=== PATIENT | female | born 1975 | race Caucasian/White ===

== ENCOUNTER 2020-08-15 07:31 | Outpatient (REF) | payer OTHER, SELFPAY ==
[2020-08-15 08:08] LABS: MANUAL DIFF FLAG NO
[2020-08-15 08:13] LABS: Basophils Percent Auto 0.5 % (0-2); Eosinophils Absolute Auto 0.1 X10*3/uL (0.0-0.4); Eosinophils Percent Auto 1.1 % (0-4); Hemoglobin 13.4 g/dl (12.0-16.0); Imm Gran Abs Auto 0.02 X10*3/uL (0.00-0.03); Imm Gran Pct Auto 0.3 % (0.0-0.4); Lymphocytes Absolute Auto 2.3 X10*3/uL (1.2-4.9); Lymphocytes Percent Auto 35.7 % (20-40); Mean Corpuscular HGB Conc 32.7 g/dl (31.0-35.0); Mean Corpuscular Hemoglobin 30.7 pg (27.0-33.0); Mean Corpuscular Volume 93.8 fL (80-98); Mean Platelet Volume 11.1 fL (9.4-12.3); Monocytes Absolute Auto 0.6 X10*3/uL (0.1-1.2); Monocytes Percent Auto 9.2 % (2-11); Neutrophils Absolute Auto 3.5 X10*3/uL (2.0-8.3); Neutrophils Percent Auto 53.2 % (45-73); Platelet Count 189 X10*3/uL (160-400); Red Blood Count 4.37 X10*6/uL (4.20-5.50); Red Cell Distribution Width 13.2 % (11.0-16.0); White Blood Count 6.5 X10*3/uL (4.8-10.8)
[2020-08-15 08:32] LABS: Estimated Average Glucose 108 mg/dL; Hemoglobin A1c % 5.4 %
[2020-08-15 08:34] LABS: Alanine Aminotransferase 14 U/L (0-31); Albumin Level 4.6 g/dL (3.5-5.0); Alkaline Phosphatase 65 U/L (39-117); Anion Gap 10 (12-20); Aspartate Amino Transferase 16 U/L (5-31); Bilirubin Total 0.8 mg/dL (0.0-1.0); Blood Urea Nitrogen 19 mg/dL (9-16); Calcium 9.4 mg/dL (8.4-10.2); Carbon Dioxide 27 mmol/L (22-29); Chloride 106 mmol/L (96-108); Cholesterol 203 mg/dL; Estimated Glomerular Filt Rate > 60; Glucose Fasting 100 mg/dL (60-99); HDL Cholesterol 46 mg/dL; LDL Cholesterol Calculated 142 mg/dl; Potassium 4.7 mmol/l (3.3-5.1); Sodium 138 mmol/L (135-145); Total Protein 7.5 g/dL (6.5-8.0); Triglycerides 77 mg/dL
== END 2020-08-15 07:32 | disposition home or self-care (01) ==
LOC: HO.LAB 07:31
PROVIDERS: PCP Internal Medicine Medical Oncology; Visit Provider Internal Medicine Medical Oncology
DX: E11.9 Type 2 diabetes mellitus without complications (principal); E83.52 Hypercalcemia; E78.2 Mixed hyperlipidemia
CPT/HCPCS: 36415; 80053; 80061; 83036; 85025

== ENCOUNTER 2020-09-23 08:20 | Outpatient (REF) | payer OTHER, SELFPAY ==
--- NOTE | 2020-09-23 | US_ITS ---
EXAMINATION: US ABDOMEN COMPLETE CLINICAL INFORMATION: Gallstones. Right upper quadrant pain. Bloating. COMPARISON: None TECHNIQUE: Real-time imaging of the abdominal viscera. FINDINGS: PANCREAS: Normal. ABDOMINAL AORTA: The proximal, mid, and distal segments are normal in caliber. INFERIOR VENA CAVA: Visualized portions are normal. LIVER: The liver is normal in size. The liver is increased in echogenicity with no focal lesion seen. There is no intrahepatic biliary duct dilatation seen. GALLBLADDER: Normal. The gallbladder is physiologically distended without evidence of stones, sludge, polyps, wall thickening or pericholecystic fluid. COMMON BILE DUCT: Normal in caliber measuring 0.4 cm in diameter. RIGHT KIDNEY: There is echogenic linear calcification, likely a calcified vessel at the lower pole. No hydronephrosis. No renal calculi or focal parenchymal lesions. The kidney measures 10.5 cm in maximum dimension. LEFT KIDNEY: Normal. No hydronephrosis. No renal calculi or focal parenchymal lesions. The kidney measures 10.4 cm in maximum dimension. SPLEEN: Normal. The spleen measures 10.5 cm in maximum dimension. FREE FLUID: None. US/US abdomen complete IMPRESSION: Slight increased hepatic echogenicity. No focal lesion seen. The rest of the abdominal ultrasound is unremarkable.
== END 2020-09-23 08:21 | disposition home or self-care (01) ==
LOC: HO.US 08:20
PROVIDERS: PCP Internal Medicine Medical Oncology; Visit Provider Internal Medicine Medical Oncology
DX: K80.20 Calculus of gallbladder without cholecystitis without obstruction (principal); R10.11 Right upper quadrant pain; R14.0 Abdominal distension (gaseous)
CPT/HCPCS: 76700

== ENCOUNTER → 2020-09-30 11:16 | Outpatient (BNVA) | payer OTHER, SELFPAY | PROVIDERS: PCP Internal Medicine Medical Oncology; Referring Provider Internal Medicine Medical Oncology; Visit Provider Physician Assistant | DX: Z76.89 Persons encountering health services in other specified circumstances (principal) ==

== ENCOUNTER 2020-10-09 14:46 | Outpatient (REF) | payer OTHER, SELFPAY | END 2020-10-09 14:47 | disposition home or self-care (01) | LOC: HO.LAB 14:46 | PROVIDERS: Visit Provider Internal Medicine | DX: Z20.828 Contact with and (suspected) exposure to other viral communicable diseases (principal) | CPT/HCPCS: C9803; U0003 ==

== ENCOUNTER 2020-10-26 10:03 | Outpatient (REF) | payer OTHER, SELFPAY | END 2020-10-26 10:04 | disposition home or self-care (01) | LOC: HO.LNP 10:03 | PROVIDERS: Visit Provider Physician Assistant | DX: A04.8 Other specified bacterial intestinal infections (principal) | CPT/HCPCS: 87338 ==

== ENCOUNTER → 2020-10-29 08:07 | Outpatient (BNVA) | payer OTHER, SELFPAY | PROVIDERS: PCP Internal Medicine Medical Oncology; Visit Provider Physician Assistant | DX: Z76.89 Persons encountering health services in other specified circumstances (principal) ==

== ENCOUNTER 2020-11-02 16:29 | Outpatient (REF) | payer OTHER, SELFPAY | END 2020-11-02 16:30 | disposition home or self-care (01) | LOC: HO.LAB 16:29 | PROVIDERS: Visit Provider Internal Medicine | DX: Z20.822 Contact with and (suspected) exposure to COVID-19 (principal) | CPT/HCPCS: 36415; C9803; U0003 ==

== ENCOUNTER → 2020-12-17 14:30 | Outpatient (BNVA) | payer OTHER, SELFPAY | PROVIDERS: PCP Internal Medicine Medical Oncology; Visit Provider Physician Assistant ==

== ENCOUNTER 2021-01-25 09:15 | Outpatient (REF) | payer OTHER, SELFPAY ==
--- NOTE | ~2021-01-25 | MM_ITS ---
EXAMINATION: MM SCREENING DIGITAL BREAST TOMOSYNTHESIS, BILATERAL CLINICAL INFORMATION: Screening. Asymptomatic. The lifetime risk of breast cancer based on the Tyrer-Cuzick Model is 16.7%. COMPARISON: Mammography: January 03, 2020 and studies dating back to August 01, 2016 TECHNIQUE: Digital breast tomosynthesis is performed in both the craniocaudal and mediolateral oblique views along with computer-aided detection (CAD). Synthesized 2D images are generated from the tomosynthesis. FINDINGS: The breasts are heterogeneously dense, which may obscure small masses (ACR BI-RADS breast composition Category c). There are no significant masses, abnormal calcifications, or other abnormalities. Stable intramammary lymph node seen deep lateral aspect of the right breast. MM/MM tomosynthesis screening BI IMPRESSION: There are no significant changes from prior study. ASSESSMENT: BI-RADS 1: Negative RECOMMENDATION: Routine annual mammography screening. This patient's information was entered into a reminder system with a target due date for their next mammogram.
== END 2021-01-25 09:16 | disposition home or self-care (01) ==
LOC: HO.MAMMO 09:15
PROVIDERS: Visit Provider Internal Medicine Medical Oncology
DX: Z12.31 Encounter for screening mammogram for malignant neoplasm of breast (principal)
CPT/HCPCS: 77063; 77067

== ENCOUNTER → 2021-02-11 14:18 | Outpatient (BNVA) | payer OTHER, SELFPAY | PROVIDERS: PCP Internal Medicine Medical Oncology; Visit Provider Physician Assistant ==

== ENCOUNTER 2021-03-13 08:54 | Outpatient (REF) | payer OTHER, SELFPAY ==
[2021-03-13 09:39] LABS: MANUAL DIFF FLAG NO
[2021-03-13 09:48] LABS: Basophils Percent Auto 0.5 % (0-2); Eosinophils Absolute Auto 0.1 X10*3/uL (0.0-0.4); Eosinophils Percent Auto 1.1 % (0-4); Hematocrit 40.5 % (37-47); Hemoglobin 13.4 g/dl (12.0-16.0); Imm Gran Abs Auto 0.02 X10*3/uL (0.00-0.03); Imm Gran Pct Auto 0.3 % (0.0-0.4); Lymphocytes Absolute Auto 2.5 X10*3/uL (1.2-4.9); Mean Corpuscular HGB Conc 33.1 g/dl (31.0-35.0); Mean Corpuscular Hemoglobin 30.5 pg (27.0-33.0); Mean Corpuscular Volume 92.3 fL (80-98); Mean Platelet Volume 11.6 fL (9.4-12.3); Monocytes Absolute Auto 0.5 X10*3/uL (0.1-1.2); Monocytes Percent Auto 7.9 % (2-11); Neutrophils Absolute Auto 3.2 X10*3/uL (2.0-8.3); Neutrophils Percent Auto 50.2 % (45-73); Platelet Count 191 X10*3/uL (160-400); Red Blood Count 4.39 X10*6/uL (4.20-5.50); Red Cell Distribution Width 13.2 % (11.0-16.0); White Blood Count 6.3 X10*3/uL (4.8-10.8)
[2021-03-13 10:19] LABS: Alanine Aminotransferase 16 U/L (0-31); Albumin Level 4.6 g/dL (3.5-5.0); Alkaline Phosphatase 74 U/L (39-117); Anion Gap 11 (12-20); Aspartate Amino Transferase 17 U/L (5-31); Bilirubin Total 0.6 mg/dL (0.0-1.0); Blood Urea Nitrogen 22 mg/dL (9-16); C Reactive Protein 0.49 mg/dL (< or = 0.50); Calcium 9.8 mg/dL (8.4-10.2); Carbon Dioxide 27 mmol/L (22-29); Chloride 104 mmol/L (96-108); Estimated Glomerular Filt Rate > 60; Glucose Random 95 mg/dL (60-115); Potassium 4.8 mmol/L (3.3-5.1); Sodium 137 mmol/L (135-145); Total Protein 7.4 g/dL (6.5-8.0)
[2021-03-15 23:12] LABS: Transglutaminase IgA 1 U/mL
[2021-03-20 12:47] LABS: Endomysial IgA Antibody Negative (Negative)
== END 2021-03-13 08:55 | disposition home or self-care (01) ==
LOC: HO.LAB 08:54
PROVIDERS: PCP Internal Medicine Medical Oncology; Visit Provider Physician Assistant
DX: K52.9 Noninfective gastroenteritis and colitis, unspecified (principal); R74.01 Elevation of levels of liver transaminase levels; R10.11 Right upper quadrant pain; R19.7 Diarrhea, unspecified
CPT/HCPCS: 36415; 80053; 83516; 85025; 86140; 86255; 86256

== ENCOUNTER 2021-04-21 07:26 | Day surgery (SDC) | payer OTHER, SELFPAY ==
[2021-04-15 11:55] VITALS: BMI 35.9
[2021-04-15 13:31] VITALS: BMI 35.9
--- NOTE | 2021-04-20 10:08 | HO.ANESPROP2 ---
Documented by User: Heather Ramachandran 04/20/21 10:09 HPI - Anesthesia Eval Consult details Narrative: 45yo F for Colonoscopy *Multiple med allergies* PMFSH Active Problems Active Problems: All Active Problems (Updated 04/15/21 @ 13:33 by Shanique Russ) Chronic diarrhea (Acute) Irritable bowel (Acute) Heartburn (Acute) Past Medical History Medical History (Updated 04/15/21 @ 13:33 by Shanique Russ) Chronic diarrhea Heartburn Irritable bowel Low back pain Family History Family History Maternal Grandmother Breast cancer Diabetes Social History Social History Household Members: Spouse and Children Household Members Other:: 1 child Alcohol intake: current Alcohol intake frequency: a few times a month Patient Tobacco Use Status: Never used Tobacco Use of substances other than those prescribed or required for medical reasons: Yes Have you been hit, kicked, punched, or otherwise hurt by someone within the past year? 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 Allergies Allergy/AdvReac Type Severity Reaction Status Date / Time ampicillin [AMPICILLIN] Allergy Severe RASH Verified 04/21/21 07:52 Penicillins [PENICILLINS] Allergy Severe Rash Verified 04/21/21 07:52 Sulfa (Sulfonamide Allergy Severe RASH Verified 04/21/21 07:52 Antibiotics) [SULFA (SULFONAMIDE ANTIBIOTICS)] penicillin V Allergy Unknown Rash Verified 04/21/21 07:52 Sulf-10 Allergy Unknown rash Uncoded 04/21/21 07:52 Sulfacet-R Allergy Unknown rash Uncoded 04/21/21 07:52 Exam Exam Date and Time: April 20, 2021 1008 Height,Weight and Vital Signs: Height 5 ft 1 in Weight 86.183 kg Assessment and Plan Assessment Anesthesia Assessment: Chart Reviewed Documented by User: Charlee Faviola 04/21/21 08:38 [facility] Past Medical History Medical History (Updated 04/15/21 @ 13:33 by Shanique Russ) Chronic diarrhea Heartburn Irritable bowel Low back pain Family History Family History Maternal Grandmother Breast cancer Diabetes Social History Social History Household Members: Spouse and Children Household Members Other:: 1 child Alcohol intake: current Alcohol intake frequency: a few times a month Patient Tobacco Use Status: Never used Tobacco Use of substances other than those prescribed or required for medical reasons: Yes Have you been hit, kicked, punched, or otherwise hurt by someone within the past year? 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 Allergies Allergy/AdvReac Type Severity Reaction Status Date / Time ampicillin [AMPICILLIN] Allergy Severe RASH Verified 04/21/21 07:52 Penicillins [PENICILLINS] Allergy Severe Rash Verified 04/21/21 07:52 Sulfa (Sulfonamide Allergy Severe RASH Verified 04/21/21 07:52 Antibiotics) [SULFA (SULFONAMIDE ANTIBIOTICS)] penicillin V Allergy Unknown Rash Verified 04/21/21 07:52 Sulf-10 Allergy Unknown rash Uncoded 04/21/21 07:52 Sulfacet-R Allergy Unknown rash Uncoded 04/21/21 07:52 Exam Airway Mallampati Class: II TM Dist: >3cm Neck ROM: Full Heart: rrr Lungs: cta Assessment and Plan Assessment Anesthesia Assessment: Anesthesia Plan Discussed and Chart Reviewed Final Anesthetic Review NPO: Yes ASA Class: II Final Preanesthetic Review: No Changes in Pt Med Stat and Consent Obtained/Reviewed Patient Risk: Intermediate Procedure Risk: Intermediate Anesthetic Plan Anesthetic Plan: MAC: Disposition: Standard PACU
--- NOTE | 2021-04-21 07:32 | MHC.SHP ---
Pre-Procedural Eval Section B Chief Complaint: Screening Relevant Family History (Specify if Yes): No Relevant Social History: None Present Medications: see Short Stay Collaborative assessment Medical History: Significant History ( Chronic diarrhea Heartburn Irritable bowel Low back pain) History of Previous Operations: No relevant previous surgery Allergies: Allergies Allergy/AdvReac Type Severity Reaction Status Date / Time ampicillin [AMPICILLIN] Allergy Severe RASH Verified 04/15/21 13:30 Penicillins [PENICILLINS] Allergy Severe Rash Verified 04/15/21 13:30 Sulfa (Sulfonamide Allergy Severe RASH Verified 04/15/21 13:30 Antibiotics) [SULFA (SULFONAMIDE ANTIBIOTICS)] penicillin V Allergy Unknown Rash Verified 12/17/20 14:31 Sulf-10 Allergy Unknown rash Uncoded 12/17/20 14:31 Sulfacet-R Allergy Unknown rash Uncoded 12/17/20 14:31 Review of Systems Sugical H&P ROS: Negative: Constitution, Cardiovascular, Respiratory, Neurological, Psychiatric, Hem-Onc, Allergic/Immunologic, Gastrointestinal, Genitourinary, Musculoskeletal, Integumentary, Endocrine and Eyes/Ears/Nose/Throat Exam Surgical H&P Exam: Normal: HEENT, Normal: Heart, Normal: Lungs, Normal: Extremities, Normal: Abdomen, Normal: Skin and Normal: Neurological Plan Diagnosis/Plan: Unchanged I have reviewed the history and physical and performed a pertinent physical examination on my patient. No changes have occurred unless specified.
[2021-04-21 07:46] VITALS: BP 139/82; PULSE 68; RESP 18; TEMP 36.7; O2SAT 99
[2021-04-21 07:50] LABS: UPreg QC Valid YES; Urine Pregnancy NEGATIVE (NEGATIVE)
[2021-04-21] MEDS: Lactated Ringers 1,000 ML 100 ML IVCONT (08:08)
--- NOTE | 2021-04-21 09:05 | P.BOP_ITS ---
Brief Operative Note Date of Service: 04/21/21 Pre-op diagnosis: diarrhea, cramps Post-op diagnosis: same Procedure: see op note Surgeon: Felicitas Felix MD Anesthesia: MAC Was an Real Estate Broker Associate used for this Procedure?: No Estimated blood loss (mL): 0 Condition: stable Disposition: PACU
--- NOTE | 2021-04-21 09:05 | W.PM.OPN ---
Operative Note Operative Note Date of Service: 04/21/21 Narrative: Operative Information Procedure Description: Colonoscopy COLONOSCOPY Instrument: Olympus variable stiffness pediatric scope 190L Colonoscopy Monitoring: Vital signs and clinical assessment, continuous EKG monitoring, Pulse oximetry, Carbon Dioxide monitoring and blood pressure monitoring were done throughout the procedure. Colon withdrawal time was 10 minutes. Procedure: The patient was placed in the left lateral decubitis position and pre-procedure medications were administered. After a digital rectal examination of the ano-rectum, the video colonoscope was inserted into the rectum and advanced through the colon to the cecum/TI. The colonoscope was slowly withdrawn in a retrograde panoramic fashion and the colon mucosa was carefully examined including a retroflexed view of the rectum. Findings and interventions are described below. Procedure Difficulty:easy Findings: Terminal Ileum-normal, random bx taken random colon bx taken Cecum:normal Ascending Colon: normal Transverse Colon -normal Descending Colon:normal Sigmoid Colon: normal Rectum: Retroflexion with small internal hemorrhoids, grade I Anorectum - normal Colon preparation: [place] Bowel Preparation Scale Right colon; 2 Transverse colon: 3 Left colon; 3 (0 = Unprepared colon segment with mucosa not seen due to solid stool that cannot be cleared. 1 = Portion of mucosa of the colon segment seen, but other areas of the colon segment not well seen due to staining, residual stool and/or opaque liquid. 2 = Minor amount of residual staining, small fragments of stool and/or opaque liquid, but mucosa of colon segment seen well. 3 = Entire mucosa of colon segment seen well with no residual staining, small fragments of stool or opaque liquid) Impression and Post Procedure Diagnosis: internal hemorrhoids Plan: High fiber diet leaflet Avoid straining at stool, epsom salts and sitz bath, anusol supps or cream as needed Repeat Colonoscopy in 10 years or earlier if clinically indicated if bx neg then recommend EGD, trial of lactose and fructose elimination Above findings were reviewed with the patient and relevant handouts were provided if indicated.
[2021-04-21 09:10] VITALS: BP 111/62; PULSE 70; RESP 16; TEMP 36.2; O2SAT 96
[2021-04-21 09:23] VITALS: BP 125/77; PULSE 51; RESP 10; O2SAT 99
== END 2021-04-21 10:03 | disposition home or self-care (01) ==
PROVIDERS: Nurse Practitioner; PCP Internal Medicine Medical Oncology; Visit Provider Internal Medicine Gastroenterology
PROC: 0DJD8ZZ Inspection of Lower Intestinal Tract, Via Natural or Artificial Opening Endoscopic (ICD-10-PCS; CPT 45378; principal; 2021-04-21 08:30)
DX: Z12.11 Encounter for screening for malignant neoplasm of colon (principal); K64.0 First degree hemorrhoids; K58.0 Irritable bowel syndrome with diarrhea; R12 Heartburn; Z88.0 Allergy status to penicillin; Z88.2 Allergy status to sulfonamides; Z79.899 Other long term (current) drug therapy
CPT/HCPCS: 45380; 81025; 88305

== ENCOUNTER 2021-05-19 08:45 | Day surgery (SDC) | payer OTHER, SELFPAY ==
--- NOTE | 2021-05-18 12:17 | P.CONAN_ITS ---
Documented by User: Heather Ramachandran 05/18/21 12:18 HPI - Anesthesia Eval Consult details Narrative: 45yo F for Upper Endoscopy s/p colo with MAC 04/21 PMF Active Problems Active Problems: All Active Problems (Updated 04/15/21 @ 13:33 by Shanique Russ) Chronic diarrhea (Acute) Irritable bowel (Acute) Heartburn (Acute) Past Medical History Medical History (Updated 04/15/21 @ 13:33 by Shanique Russ) Chronic diarrhea Heartburn Irritable bowel Low back pain Family History Family History Maternal Grandmother Breast cancer Diabetes Social History Social History Household Members: Spouse and Children Household Members Other:: 1 child Alcohol intake: current Alcohol intake frequency: a few times a month Patient Tobacco Use Status: Never used Tobacco Advance Directives: No Advance Directives Information Provided: Yes Recently lost weight without trying: No Nutrition Risks: No Nutritional Risk 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 Meds Allergies Allergy/AdvReac Type Severity Reaction Status Date / Time ampicillin [AMPICILLIN] Allergy Severe RASH Verified 04/21/21 07:52 Penicillins [PENICILLINS] Allergy Severe Rash Verified 04/21/21 07:52 Sulfa (Sulfonamide Allergy Severe RASH Verified 04/21/21 07:52 Antibiotics) [SULFA (SULFONAMIDE ANTIBIOTICS)] penicillin V Allergy Unknown Rash Verified 04/21/21 07:52 Sulf-10 Allergy Unknown rash Uncoded 04/21/21 07:52 Sulfacet-R Allergy Unknown rash Uncoded 04/21/21 07:52 Exam Exam Date and Time: May 18, 2021 1217 Pertinent Lab Results Pertinent Lab Results: Laboratory Tests 03/13/21 03/13/21 09:10 09:10 WBC 6.3 Hgb 13.4 Hct 40.5 Plt Count 191 Sodium 137 Potassium 4.8 Chloride 104 Carbon Dioxide 27 BUN 22 H Creatinine 0.98 Assessment and Plan Assessment Anesthesia Assessment: Chart Reviewed Documented by User: Charlee Faviola 05/19/21 09:45 PMFSH Past Medical History Medical History (Updated 04/15/21 @ 13:33 by Shanique Russ) Chronic diarrhea Heartburn Irritable bowel Low back pain Family History Family History Maternal Grandmother Breast cancer Diabetes Social History Social History Household Members: Spouse and Children Household Members Other:: 1 child Alcohol intake: current Alcohol intake frequency: a few times a month Patient Tobacco Use Status: Never used Tobacco Advance Directives: No Advance Directives Information Provided: Yes Recently lost weight without trying: No Nutrition Risks: No Nutritional Risk 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 Meds Allergies Allergy/AdvReac Type Severity Reaction Status Date / Time ampicillin [AMPICILLIN] Allergy Severe RASH Verified 04/21/21 07:52 Penicillins [PENICILLINS] Allergy Severe Rash Verified 04/21/21 07:52 Sulfa (Sulfonamide Allergy Severe RASH Verified 04/21/21 07:52 Antibiotics) [SULFA (SULFONAMIDE ANTIBIOTICS)] penicillin V Allergy Unknown Rash Verified 04/21/21 07:52 Sulf-10 Allergy Unknown rash Uncoded 04/21/21 07:52 Sulfacet-R Allergy Unknown rash Uncoded 04/21/21 07:52 Exam Airway Mallampati Class: II TM Dist: >3cm Neck ROM: Full Heart: rrr Lungs: cta Assessment and Plan Assessment Anesthesia Assessment: Anesthesia Plan Discussed and Chart Reviewed Final Anesthetic Review NPO: Yes ASA Class: II Final Preanesthetic Review: No Changes in Pt Med Stat and Consent Obtained/Reviewed Patient Risk: Intermediate Procedure Risk: Intermediate Anesthetic Plan Anesthetic Plan: MAC: Disposition: Standard PACU
[2021-05-19 09:23] VITALS: BP 130/66; PULSE 63; RESP 16; TEMP 36.7; O2SAT 99; BMI 35.9
[2021-05-19 09:29] LABS: UPreg QC Valid YES; Urine Pregnancy NEGATIVE (NEGATIVE)
[2021-05-19] MEDS: Lactated Ringers 1,000 ML 100 ML IVCONT (09:41)
--- NOTE | 2021-05-19 10:02 | MHC.SHP ---
Pre-Procedural Eval Section A Date of Service: 05/19/21 Section B Chief Complaint: diarrhea Relevant Family History (Specify if Yes): No Relevant Social History: None Present Medications: see Short Stay Collaborative assessment Medical History: Significant History (Chronic diarrhea Heartburn Irritable bowel Low back pain) History of Previous Operations: Relevant previous surgery/procedure and date(s) (colonoscopy) Allergies: Allergies Allergy/AdvReac Type Severity Reaction Status Date / Time ampicillin [AMPICILLIN] Allergy Severe RASH Verified 04/21/21 07:52 Penicillins [PENICILLINS] Allergy Severe Rash Verified 04/21/21 07:52 Sulfa (Sulfonamide Allergy Severe RASH Verified 04/21/21 07:52 Antibiotics) [SULFA (SULFONAMIDE ANTIBIOTICS)] penicillin V Allergy Unknown Rash Verified 04/21/21 07:52 Sulf-10 Allergy Unknown rash Uncoded 04/21/21 07:52 Sulfacet-R Allergy Unknown rash Uncoded 04/21/21 07:52 Review of Systems Sugical H&P ROS: Negative: Constitution, Cardiovascular, Respiratory, Neurological, Psychiatric, Hem-Onc, Allergic/Immunologic, Gastrointestinal, Genitourinary, Musculoskeletal, Integumentary, Endocrine and Eyes/Ears/Nose/Throat Exam Surgical H&P Exam: Normal: HEENT, Normal: Heart, Normal: Lungs, Normal: Extremities, Normal: Abdomen, Normal: Skin and Normal: Neurological Plan Diagnosis/Plan: Unchanged I have reviewed the history and physical and performed a pertinent physical examination on my patient. No changes have occurred unless specified.
--- NOTE | 2021-05-19 10:03 | P.OP_ITS ---
Operative Note Operative Note Date of Service: 05/19/21 Narrative: Procedure Description: EGD FLEXIBLE TRANSORAL UPPER GASTROINTESTINAL ENDOSCOPY UPPER ENDOSCOPY Consent: Indications for the procedure and potential complications of bleeding, perforation, reaction to medications and missed diagnosis were discussed with the patient and informed consent was obtained. Instrument: Olympus GIF H 190 J mid size upper endoscope Monitoring: Vital signs and clinical assessment, continuous EKG monitoring, Pulse oximetry, Carbon Dioxide monitoring and blood pressure monitoring were done throughout the procedure. Procedure: The patient was placed in the left lateral decubitis position and pre-procedure medications were administered and a bite block was placed. The endoscope was inserted into the mouth and advanced under direct vision to the third part of duodenum. A careful inspection was made as the upper endoscope was withdrawn including a retroflexed examination of the proximal stomach; Findings and interventions are described below. Findings: Larynx:normal Esophagus: GE junction at 36 cm, diaphragm hiatus at 33 cm, mild esophagitis noted with a small island of possible barretts, bx taken--3 cm sliding hiatal hernia noted Stomach: Patchy gastric erythema with few erosions at antrum. Biopsies were obtained. Grade 2 flap valve on retroflexed examination of the cardia. 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
--- NOTE | 2021-05-19 10:03 | PM.OP ---
Brief Operative Note Date of Service: 05/19/21 Pre-op diagnosis: diarrhea Post-op diagnosis: same Procedure: see op note Surgeon: Felicitas Felix MD Anesthesia: MAC Was an Dynamic Etching Processor used for this Procedure?: No Estimated blood loss (mL): 0 Condition: stable Disposition: PACU
[2021-05-19 10:40] VITALS: BP 106/64; PULSE 88; RESP 16; TEMP 36.2; O2SAT 92
[2021-05-19 10:55] VITALS: BP 116/59; PULSE 63; RESP 16; TEMP 36.2; O2SAT 96
[2021-05-24 23:16] LABS: Lactase 4.4 (15.0-45.5); Maltase 222.1 (100.0-224.4); Palatinase 15.4 (5.0-26.3); Sucrase 62.1 (25.0-69.9)
== END 2021-05-19 11:30 | disposition home or self-care (01) ==
PROVIDERS: Nurse Practitioner; PCP Internal Medicine Medical Oncology; Visit Provider Internal Medicine Gastroenterology
PROC: 0DJ08ZZ Inspection of Upper Intestinal Tract, Via Natural or Artificial Opening Endoscopic (ICD-10-PCS; CPT 43235; principal; 2021-05-19 15:50)
DX: K29.60 Other gastritis without bleeding (principal); K58.9 Irritable bowel syndrome, unspecified; K22.70 Barrett's esophagus without dysplasia; K20.80 Other esophagitis without bleeding; K44.9 Diaphragmatic hernia without obstruction or gangrene; Z79.899 Other long term (current) drug therapy; Z88.0 Allergy status to penicillin; Z88.2 Allergy status to sulfonamides
CPT/HCPCS: 43239; 36415; 81025; 82657; 88305; 88342

== ENCOUNTER 2021-06-15 08:55 | Outpatient (REF) | payer OTHER, SELFPAY ==
[2021-06-16 14:41] LABS: H Pylori Breath Test NOT DETECTED (NOT DETECTED)
== END 2021-06-15 08:56 | disposition home or self-care (01) ==
LOC: HO.LNP 08:55
PROVIDERS: PCP Emergency Medicine; Visit Provider Internal Medicine Gastroenterology
DX: K52.9 Noninfective gastroenteritis and colitis, unspecified (principal); R12 Heartburn
CPT/HCPCS: 83013

== ENCOUNTER → 2021-07-06 15:03 | Outpatient (BNVA) | payer OTHER, SELFPAY | PROVIDERS: PCP Emergency Medicine; Visit Provider Internal Medicine Gastroenterology ==

== ENCOUNTER → 2021-10-12 14:52 | Outpatient (BNVA) | payer OTHER, SELFPAY | PROVIDERS: PCP Internal Medicine Medical Oncology; Visit Provider Internal Medicine Gastroenterology ==

== ENCOUNTER 2022-02-15 08:46 | Outpatient (REF) | payer OTHER, SELFPAY ==
--- NOTE | ~2022-02-15 | MM_ITS ---
EXAMINATION: MM SCREENING DIGITAL BREAST TOMOSYNTHESIS, BILATERAL CLINICAL INFORMATION: Screening. Asymptomatic. The lifetime risk of breast cancer based on the Tyrer-Cuzick Model is 16%. COMPARISON: Mammography: 01/25/2021, 01/03/2020, 12/03/2018 TECHNIQUE: Digital breast tomosynthesis is performed in both the craniocaudal and mediolateral oblique views along with computer-aided detection (CAD). Synthesized 2D images are generated from the tomosynthesis. FINDINGS: The breasts are heterogeneously dense, which may obscure small masses (ACR BI-RADS breast composition Category c). There are no significant masses, abnormal calcifications, or other abnormalities. Parenchymal pattern is similar to prior studies. There is no developing density or architectural abnormality. The axilla and skin contours are unremarkable. No significant changes. MM/MM tomosynthesis screening BI IMPRESSION: No mammographic evidence of malignancy. ASSESSMENT: BI-RADS 1: Negative RECOMMENDATION: Routine annual mammography screening. This patient's information was entered into a reminder system with a target due date for their next mammogram.
== END 2022-02-15 08:47 | disposition home or self-care (01) ==
LOC: HO.MAMMO 08:46
PROVIDERS: PCP Internal Medicine Medical Oncology; Visit Provider Internal Medicine Medical Oncology
DX: Z12.31 Encounter for screening mammogram for malignant neoplasm of breast (principal)
CPT/HCPCS: 77063; 77067

== ENCOUNTER 2023-02-21 08:02 | Outpatient (REF) | payer OTHER, SELFPAY ==
--- NOTE | ~2023-02-21 | MM_ITS ---
EXAMINATION: MM SCREENING DIGITAL BREAST TOMOSYNTHESIS, BILATERAL CLINICAL INFORMATION: Screening. Asymptomatic. The lifetime risk of breast cancer based on the Tyrer-Cuzick Model is 18.2%. COMPARISON: Mammography: 02/15/2022 and studies dating back to 08/01/2016 TECHNIQUE: Digital breast tomosynthesis is performed in both the craniocaudal and mediolateral oblique views along with computer-aided detection (CAD). Synthesized 2D images are generated from the tomosynthesis. FINDINGS: The breasts are heterogeneously dense, which may obscure small masses (ACR BI-RADS breast composition Category c). There is a stable parenchymal pattern of the right breast with no new abnormal dominant mass or suspicious grouping of microcalcifications. On mediolateral oblique view of the left breast there is an ill-defined density which may represent superimposition of fibroglandular tissue however mass cannot be excluded and recommend spot compression view in mediolateral oblique projection as well as 90 degree mediolateral view. MM/MM tomosynthesis screening BI IMPRESSION: Left breast density for further evaluation. ASSESSMENT: BI-RADS 0: Incomplete - Need Additional Imaging Evaluation RECOMMENDATION: 1. Additional views of the left breast. 2. Targeted ultrasound if warranted after review of the additional views. 3. Radiology department staff will contact the patient for additional imaging. This patient's information was entered into a reminder system with a target due date for their next mammogram.
== END 2023-02-21 08:03 | disposition home or self-care (01) ==
LOC: HO.MAMMO 08:02
PROVIDERS: PCP Internal Medicine Medical Oncology; Visit Provider Obstetrics & Gynecology
DX: Z12.31 Encounter for screening mammogram for malignant neoplasm of breast (principal)
CPT/HCPCS: 77063; 77067

== ENCOUNTER 2023-03-22 14:42 | Outpatient (REF) | payer OTHER, SELFPAY ==
--- NOTE | ~2023-03-22 | MM_ITS ---
EXAMINATION: MM DIAGNOSTIC DIGITAL BREAST TOMOSYNTHESIS, LEFT CLINICAL INFORMATION: Recall from screening for asymmetric density on MLO view, suspect summation artifact. COMPARISON: Prior mammography exams including most recent 02/21/2023. TECHNIQUE: Digital breast tomosynthesis is performed. 2D images are generated from the tomosynthesis. The following views are obtained: Spot MLO, standard ML. FINDINGS: The breasts are heterogeneously dense, which may obscure small masses (ACR BI-RADS breast composition Category c). The additional views show no significant changes from prior studies. There is no developing density or mass or architectural abnormality. Results are discussed with the patient at time of visit. MM/MM tomosynthesis added views L IMPRESSION: No mammographic evidence of malignancy. ASSESSMENT: BI-RADS 1: Negative RECOMMENDATION: Routine annual mammography screening. This patient's information was entered into a reminder system with a target due date for their next mammogram.
== END 2023-03-22 14:43 | disposition home or self-care (01) ==
LOC: HO.MAMMO 14:42
PROVIDERS: PCP Internal Medicine Medical Oncology; Visit Provider Obstetrics & Gynecology
DX: R92.2 Inconclusive mammogram (principal)
CPT/HCPCS: 77061; 77065

== ENCOUNTER 2023-04-26 06:33 | Outpatient (REF) | payer OTHER, SELFPAY ==
[2023-04-26 06:46] LABS: MANUAL DIFF FLAG NO
[2023-04-26 07:07] LABS: Basophils Percent Auto 0.3 % (0-2); Eosinophils Absolute Auto 0.1 X10*3/uL (0.0-0.4); Eosinophils Percent Auto 1.1 % (0-4); Hematocrit 40.1 % (37.0-47.0); Hemoglobin 13.4 g/dl (12.0-16.0); Imm Gran Abs Auto 0.01 X10*3/uL (0.00-0.03); Imm Gran Pct Auto 0.2 % (0.0-0.4); Lymphocytes Absolute Auto 2.5 X10*3/uL (1.2-4.9); Lymphocytes Percent Auto 37.8 % (20-40); Mean Corpuscular HGB Conc 33.4 g/dl (31.0-35.0); Mean Corpuscular Hemoglobin 30.9 pg (27.0-33.0); Mean Corpuscular Volume 92.6 fL (80.0-98.0); Mean Platelet Volume 11.8 fL (9.4-12.3); Monocytes Absolute Auto 0.5 X10*3/uL (0.1-1.2); Monocytes Percent Auto 7.8 % (2-11); Neutrophils Absolute Auto 3.5 x10*3/uL (2.0-8.3); Neutrophils Percent Auto 52.8 % (45-73); Platelet Count 182 X10*3/uL (160-400); Red Blood Count 4.33 X10*6/uL (4.20-5.50); Red Cell Distribution Width 13.1 % (11.0-16.0); White Blood Count 6.5 X10*3/uL (4.8-10.8)
[2023-04-26 07:55] LABS: Alanine Aminotransferase 16 U/L (0-31); Albumin Level 4.3 g/dL (3.5-5.0); Alkaline Phosphatase 50 U/L (39-117); Anion Gap 13 (12-20); Aspartate Amino Transferase 19 U/L (5-31); Bilirubin Total 0.6 mg/dL (0.0-1.0); Blood Urea Nitrogen 21 mg/dL (9-16); Calcium 10.3 mg/dL (8.4-10.2); Carbon Dioxide 25 mmol/L (22-29); Chloride 105 mmol/L (96-108); Cholesterol 197 mg/dL; Estimated Glomerular Filt Rate > 60; Glucose Fasting 98 mg/dL (60-99); HDL Cholesterol 43 mg/dL; LDL Cholesterol Calculated 137 mg/dl; Potassium 4.4 mmol/L (3.3-5.1); Sodium 139 mmol/L (135-145); Total Protein 7.3 g/dL (6.5-8.0); Triglycerides 87 mg/dL
[2023-04-26 08:05] LABS: Estimated Average Glucose 103 mg/dL; Hemoglobin A1c % 5.2 %
[2023-04-26 08:43] LABS: Creatinine Urine 91.54 mg/dL; Microalbumin Urine < 5.0 mg/L
== END 2023-04-26 06:34 | disposition home or self-care (01) ==
LOC: HO.LAB 06:33
PROVIDERS: PCP Internal Medicine Medical Oncology; Visit Provider Internal Medicine Medical Oncology
DX: Z00.00 Encounter for general adult medical examination without abnormal findings (principal); E11.9 Type 2 diabetes mellitus without complications; E83.52 Hypercalcemia; E78.2 Mixed hyperlipidemia
CPT/HCPCS: 36415; 80053; 80061; 82043; 83036; 85025

== ENCOUNTER 2023-07-10 14:32 | Outpatient (REF) | payer OTHER, SELFPAY ==
[2023-07-10 16:37] LABS: Vitamin D 25-OH Total 34.5 ng/mL (>30)
[2023-07-10 16:51] LABS: Folate 8.8 ng/mL (> or = 4.0); Vitamin B12 990 pg/mL (200-900)
[2023-07-13 16:48] LABS: Zinc 62 mcg/dL (60-130)
[2023-07-14 21:49] LABS: Alpha-Tocopherol 15.3 mg/L (5.7-19.9); Beta-Gamma Tocopherol <1.0 mg/L (<=4.3)
[2023-07-15 10:03] LABS: Vitamin B1 11 nmol/L (8-30)
[2023-07-15 12:39] LABS: Vitamin B6 21.4 ng/mL (2.1-21.7)
[2023-07-15 17:18] LABS: Vitamin B5 (Pantothenic Acid) 87 ng/mL (<275)
[2023-07-15 17:48] LABS: Vitamin A 40 mcg/dL (38-98)
[2023-07-15 17:53] LABS: Vitamin K1 762 pg/mL (130-1500)
[2023-07-15 21:59] LABS: Vitamin C 0.9 mg/dL (0.3-2.7)
[2023-07-17 23:19] LABS: Nicotinamide 20 ng/mL; Vit B3 - Nicotinic Acid <20 ng/mL
== END 2023-07-10 14:33 | disposition home or self-care (01) ==
LOC: HO.LAB 14:32
PROVIDERS: PCP Internal Medicine Medical Oncology; Visit Provider Internal Medicine Gastroenterology
DX: K20.90 Esophagitis, unspecified without bleeding (principal); K29.60 Other gastritis without bleeding; Z91.018 Allergy to other foods; E55.9 Vitamin D deficiency, unspecified
CPT/HCPCS: 36415; 82180; 82306; 82607; 82746; 84207; 84425; 84446; 84590; 84591; 84597; 84630; 86003

== ENCOUNTER 2023-07-10 14:32 | Outpatient (AMB) | payer OTHER, SELFPAY ==
--- NOTE | 2023-07-10 14:32 | A.OFFVIS_ITS ---
Intake Vital Signs 07/10/23 14:35 Height 5 ft 1 in Weight 179 lb 12.465 oz BMI 34.0 BP 131/72 Blood Pressure Location Lt brachial Position Sitting Pulse 61 Intake Visit Reasons: 6 month fu Intake Note: Lola presents in the office as a 6 month follow up. CC: She states that she is feeling okay! She is still trying to find a good diet that works for her. Allergies ampicillin [AMPICILLIN] Allergy (Severe, Verified 07/10/23 14:36) RASH Penicillins [PENICILLINS] Allergy (Severe, Verified 07/10/23 14:36) Rash Sulfa (Sulfonamide Antibiotics) [SULFA (SULFONAMIDE ANTIBIOTICS)] Allergy (Severe, Verified 07/10/23 14:36) RASH amoxicillin Allergy (Mild, Verified 07/10/23 14:36) Unknown penicillin V Allergy (Unknown, Verified 07/10/23 14:36) Rash Sulf-10 Allergy (Unknown, Uncoded 07/10/23 14:36) rash Sulfacet-R Allergy (Unknown, Uncoded 07/10/23 14:36) rash HPI 6 month fu HPI Details 47 yr old f here for f/u RECAP: c/o loose stool-abdominal cramp, interrupting her life.? She has had acid reflux as well.? stress maybe playing a role she tried rifaximin and it didn;t help colonoscopy--nml bx, EGD 05/19-- hiatal hernia, erosive gastritis, esophagitis, lactase enzyme 4.4 --low h pylori breath--neg TTG neg INTERIM: she has been trying to careful with her diet and avoiding triggers cheryl fried and greasy, curries etc no nausea or vomiting no abdominal pain takes black coffee very occasional no dysphagia no -heartburn---feels PPI is helping EXAM: GENERAL: The patient is well developed and nontoxic. VITAL SIGNS:see workflow HEENT: Nonicteric sclerae, PERRLA, EOMI. Oropharynx clear. Moist mucous membranes. Conjunctivae appear well perfused. No thyroid mass. CHEST: Chest wall is nontender. HEART: Regular rate and rhythm without murmurs. LUNGS: Clear to auscultation bilaterally. ABDOMEN: Soft, positive bowel sounds, nontender, no organomegaly.no flank tenderness SKIN: No rash, no excessive bruising, petechiae, or purpura. NEUROLOGIC: Cranial nerves II-XII intact without motor/sensory deficit. A/P: 1/ Erosive gastritis, esophagitis, hiata l hernia--h pylori ne,g maybe acid hypersecretor 2/ lactose deficient PLAN: 1/ cont with probiotics with bifidobacte rium 2/cont PPI once daily with MV with Vit D 3/ check RAST for food allergy ?? 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 Physical Exam Vital Signs: BMI result Body Mass Index 34.0 Assessment & Plan Assessment & Plan (1) Esophagitis: Code(s): K20.90 - Esophagitis, unspecified without bleeding (2) Erosive gastritis: Code(s): K29.60 - Other gastritis without bleeding (3) Food allergy: Code(s): Z91.018 - Allergy to other foods Orders: Orders Vitamin B3 (Niacin) Today K20.90 - Esophagitis, unspecified without bleeding, K2 9.60 - Other gastritis without bleeding, Z91.018 - Allergy to other foods Vitamin B5 (Pantothenic Acid) Today K20.90 - Esophagitis, unspecified without bleeding, K29.60 - Other gastritis without bleeding, Z91.018 - Allergy to other foods Vitamin B6 Today K20.90 - Esophagitis, unspecified without bleeding, K29.60 - Other gastritis without bleeding, Z91.018 - Allergy to other foods Vitamin C Today K20.90 - Esophagitis, unspecified without bleeding, K29.60 - Other gastritis without bleeding, Z91.018 - Allergy to other foods Vitamin K1 Today K20.90 - Esophagitis, unspecified without bleeding, K29.60 - Other gastritis without bleeding, Z91.018 - Allergy to other foods Vitamin A Today K20.90 - Esophagitis, unspecified without bleeding, K29.60 - Other gastritis without bleeding, Z91.018 - Allergy to other foods Vitamin B1 Today K20.90 - Esophagitis, unspecified without bleeding, K29.60 - Other gastritis without bleeding, Z91.018 - Allergy to other foods Vitamin B12 and Folate Today K20.90 - Esophagitis, unspecified without bleeding, K29.60 - Other gastritis without bleeding, Z91.018 - Allergy to other foods Vitamin D 25-OH Total Today K20.90 - Esophagitis, unspecified without bleeding, K29.60 - Other gastritis without bleeding, Z91.018 - Allergy to other foods Vitamin E Today K20.90 - Esophagitis, unspecified without bleeding, K29.60 - Other gastritis without bleeding, Z91.018 - Allergy to other foods Zinc Today K20.90 - Esophagitis, unspecified without bleeding, K29.60 - Other gastritis without bleeding, Z91.018 - Allergy to other foods Rast Allergen Today K20.90 - Esophagitis, unspecified without bleeding, K29.60 - Other gastritis without bleeding, Z91.018 - Allergy to other foods Coding Level of Care Code Est Pt Level 3 (65841) Diagnoses Esophagitis K20.90 Erosive gastritis K29.60 Food allergy Z91.018
[2023-07-10 14:35] VITALS: BP 131/72; PULSE 61; BMI 34.0
== END 2023-07-10 14:57 | disposition home or self-care (01) ==
PROVIDERS: PCP Internal Medicine Medical Oncology; Visit Provider Internal Medicine Gastroenterology
DX: K20.90 Esophagitis, unspecified without bleeding (principal); K29.60 Other gastritis without bleeding; Z91.018 Allergy to other foods
CPT/HCPCS: 99213

== ENCOUNTER 2023-08-19 07:30 | Outpatient (REF) | payer OTHER, SELFPAY ==
[2023-08-19 08:05] LABS: MANUAL DIFF FLAG NO
[2023-08-19 08:13] LABS: Basophils Percent Auto 0.6 % (0-2); Eosinophils Absolute Auto 0.1 X10*3/uL (0.0-0.4); Eosinophils Percent Auto 1.5 % (0-4); Hematocrit 38.7 % (37.0-47.0); Hemoglobin 12.9 g/dl (12.0-16.0); Imm Gran Abs Auto 0.01 X10*3/uL (0.00-0.03); Imm Gran Pct Auto 0.2 % (0.0-0.4); Lymphocytes Absolute Auto 2.1 X10*3/uL (1.2-4.9); Lymphocytes Percent Auto 38.9 % (20-40); Mean Corpuscular HGB Conc 33.3 g/dl (31.0-35.0); Mean Corpuscular Hemoglobin 30.3 pg (27.0-33.0); Mean Corpuscular Volume 90.8 fL (80.0-98.0); Monocytes Absolute Auto 0.5 X10*3/uL (0.1-1.2); Monocytes Percent Auto 8.9 % (2-11); Neutrophils Absolute Auto 2.7 x10*3/uL (2.0-8.3); Neutrophils Percent Auto 49.9 % (45-73); Platelet Count 202 X10*3/uL (160-400); Red Blood Count 4.26 X10*6/uL (4.20-5.50); Red Cell Distribution Width 13.2 % (11.0-16.0); White Blood Count 5.4 X10*3/uL (4.8-10.8)
[2023-08-19 08:18] LABS: Estimated Average Glucose 105 mg/dL; Hemoglobin A1c % 5.3 % (<6.0)
[2023-08-19 08:58] LABS: Alanine Aminotransferase 18 U/L (0-31); Albumin Level 4.4 g/dL (3.5-5.0); Alkaline Phosphatase 50 U/L (39-117); Anion Gap 13 (12-20); Aspartate Amino Transferase 20 U/L (5-31); Bilirubin Total 0.4 mg/dL (0.0-1.0); Blood Urea Nitrogen 18 mg/dL (9-16); Carbon Dioxide 24 mmol/L (22-29); Chloride 107 mmol/L (96-108); Cholesterol 210 mg/dL (<200); Estimated Glomerular Filt Rate > 60; Glucose Fasting 99 mg/dL (60-99); HDL Cholesterol 56 mg/dL (>40); LDL Cholesterol Calculated 143 mg/dL (<100); Potassium 4.6 mmol/L (3.3-5.1); Sodium 139 mmol/L (135-145); Total Protein 7.4 g/dL (6.5-8.0); Triglycerides 56 mg/dL (<150)
[2023-08-19 09:53] LABS: Creatinine Urine 81.89 mg/dL; Microalbum/Creatinine Ratio Ur 7.3 ug/mg cr (<30)
== END 2023-08-19 07:31 | disposition home or self-care (01) ==
LOC: HO.LAB 07:30
PROVIDERS: PCP Internal Medicine Medical Oncology; Visit Provider Internal Medicine Medical Oncology
DX: E11.9 Type 2 diabetes mellitus without complications (principal); E66.9 Obesity, unspecified; E78.2 Mixed hyperlipidemia
CPT/HCPCS: 36415; 80053; 80061; 82043; 82570; 83036; 85025

== ENCOUNTER 2023-08-21 15:14 | Outpatient (REF) | payer OTHER, SELFPAY ==
--- NOTE | ~2023-08-21 | US_ITS ---
EXAMINATION: US VENOUS ULTRASOUND WITH DOPPLER LOWER EXTREMITY, RIGHT CLINICAL INFORMATION: Thrombophilia COMPARISON: None available. TECHNIQUE: Ultrasound of the deep veins is performed from the hip to the calf with compression sonography and color and pulse Doppler assessment. Spectral analysis with color-flow imaging is performed. FINDINGS: There is normal venous compression and respiratory variation and augmented flow. The visualized common femoral vein, superficial femoral vein, profunda femoral vein, popliteal vein, and the trifurcation region shows no evidence of deep venous thrombosis. There is no significant popliteal fossa cyst. If the patient's symptoms persist, followup ultrasound in 5 days 7 days might be of value to exclude proximal propagation from a non-visualized calf vein. US/US venous duplex LE RT IMPRESSION: No DVT demonstrated in the right lower extremity.
== END 2023-08-21 15:15 | disposition home or self-care (01) ==
LOC: HO.US 15:14
PROVIDERS: PCP Internal Medicine Medical Oncology; Visit Provider Internal Medicine Medical Oncology
DX: D68.59 Other primary thrombophilia (principal); I82.401 Acute embolism and thrombosis of unspecified deep veins of right lower extremity
CPT/HCPCS: 93971

== ENCOUNTER 2023-11-11 07:16 | Outpatient (REF) | payer OTHER, SELFPAY ==
[2023-11-11 07:28] LABS: MANUAL DIFF FLAG NO
[2023-11-11 07:52] LABS: Basophils Percent Auto 0.5 % (0-2); Eosinophils Absolute Auto 0.1 X10*3/uL (0.0-0.4); Eosinophils Percent Auto 0.9 % (0-4); Hematocrit 40.6 % (37.0-47.0); Hemoglobin 13.5 g/dl (12.0-16.0); Imm Gran Abs Auto 0.02 X10*3/uL (0.00-0.03); Imm Gran Pct Auto 0.3 % (0.0-0.4); Lymphocytes Absolute Auto 2.6 X10*3/uL (1.2-4.9); Lymphocytes Percent Auto 38.3 % (20-40); Mean Corpuscular HGB Conc 33.3 g/dl (31.0-35.0); Mean Corpuscular Hemoglobin 30.8 pg (27.0-33.0); Mean Corpuscular Volume 92.5 fL (80.0-98.0); Mean Platelet Volume 11.7 fL (9.4-12.3); Monocytes Absolute Auto 0.5 X10*3/uL (0.1-1.2); Neutrophils Absolute Auto 3.5 x10*3/uL (2.0-8.3); Platelet Count 206 X10*3/uL (160-400); Red Blood Count 4.39 X10*6/uL (4.20-5.50); Red Cell Distribution Width 13.2 % (11.0-16.0); White Blood Count 6.7 X10*3/uL (4.8-10.8)
[2023-11-11 08:01] LABS: Estimated Average Glucose 105 mg/dL; Hemoglobin A1c % 5.3 % (<6.0)
[2023-11-11 08:32] LABS: Alanine Aminotransferase 17 U/L (0-31); Albumin Level 4.6 g/dL (3.5-5.0); Alkaline Phosphatase 59 U/L (39-117); Anion Gap 12 (12-20); Aspartate Amino Transferase 18 U/L (5-31); Bilirubin Total 0.2 mg/dL (0.0-1.0); Blood Urea Nitrogen 25 mg/dL (9-16); Carbon Dioxide 27 mmol/L (22-29); Chloride 104 mmol/L (96-108); Cholesterol 211 mg/dL (<200); Estimated Glomerular Filt Rate 42; Glucose Random 100 mg/dL (60-115); HDL Cholesterol 50 mg/dL (>40); LDL Cholesterol Calculated 146 mg/dL (<100); Potassium 4.5 mmol/L (3.3-5.1); Sodium 138 mmol/L (135-145); Total Protein 7.7 g/dL (6.5-8.0); Triglycerides 79 mg/dL (<150)
[2023-11-11 10:11] LABS: Microalbumin Urine < 5.0 mg/L
== END 2023-11-11 07:17 | disposition home or self-care (01) ==
LOC: HO.LAB 07:16
PROVIDERS: PCP Internal Medicine Medical Oncology; Visit Provider Internal Medicine Medical Oncology
DX: E11.9 Type 2 diabetes mellitus without complications (principal); E78.2 Mixed hyperlipidemia; E66.9 Obesity, unspecified
CPT/HCPCS: 36415; 80053; 80061; 82043; 82570; 83036; 85025

== ENCOUNTER 2023-12-14 07:41 | Outpatient (REF) | payer OTHER, SELFPAY ==
--- NOTE | ~2023-12-14 | XR_ITS ---
EXAMINATION: XR KNEE, LEFT CLINICAL INFORMATION: Pain. COMPARISON: None available. TECHNIQUE: AP, lateral and sunrise views of the left knee are submitted. FINDINGS: No fracture or joint effusion. Alignment is anatomic. Joint spaces are maintained. No abnormal soft tissue calcification. XR/XR knee LT 3V IMPRESSION: Normal left knee.
== END 2023-12-14 07:42 | disposition home or self-care (01) ==
LOC: HO.HOSX 07:41
PROVIDERS: Visit Provider Orthopaedic Surgery
DX: M25.562 Pain in left knee (principal)
CPT/HCPCS: 73562

== ENCOUNTER 2023-12-14 14:50 | Outpatient (AMB) | payer OTHER, SELFPAY ==
[2023-12-14 14:51] VITALS: BMI 33.8
--- NOTE | 2023-12-14 14:51 | A.OFFVIS_ITS ---
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 The patient describes her pain as sharp in nature. She 1st injured her left knee in 1986 while playing field hockey. She underwent left knee surgery following that injury. The patient states that she was doing fairly well up until about 6 months ago. At that time she twisted her knee and had acute onset of pain. She has done physical therapy exercises which aggravated her pain. Most of the pain is along the medial aspect of her knee. She has tried Tylenol which gives her minimal relief. She has not able to tolerate anti-inflammatory medicines. Allergies ampicillin [AMPICILLIN] Allergy (Severe, Verified 12/14/23 15:26) RASH Penicillins [PENICILLINS] Allergy (Severe, Verified 12/14/23 15:26) Rash Sulfa (Sulfonamide Antibiotics) [SULFA (SULFONAMIDE ANTIBIOTICS)] Allergy (Severe, Verified 12/14/23 15:26) RASH amoxicillin Allergy (Mild, Verified 12/14/23 15:26) Unknown penicillin V Allergy (Unknown, Verified 12/14/23 15:26) Rash Sulf-10 Allergy (Unknown, Uncoded 07/10/23 14:36) rash Sulfacet-R Allergy (Unknown, Uncoded 07/10/23 14:36) rash PFSH Medical History (Updated 12/14/23 @ 07:41 by Kevin Albert MD) Low back pain Chronic diarrhea Irritable bowel Heartburn Surgical History (Updated 12/14/23 @ 15:27 by Sheela Wilkinson CMA) Hx of left knee surgery (~1986) Hx of colonoscopy History of esophagogastroduodenoscopy (EGD) Family History Maternal Grandmother Breast cancer Diabetes Social History Household Members: Spouse and Children Household Members Other:: 1 child Alcohol intake: current Alcohol intake frequency: a few times a month Patient Tobacco Use Status: Never used Tobacco 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 Physical Exam Vital Signs: BMI result Body Mass Index 33.8 Const Other: Well-nourished well-developed very friendly female awake alert and oriented x3 in no acute distress Extrem Other: Bilateral lower extremity examination shows good capillary refill, no skin lesions noted, normal sensation light touch Left knee examination shows a minimal effusion, minimal crepitus with range of motion, tenderness along her medial joint line, positive Mariposa's test, no instability Results Reviewed Results Reviewed: Standing full weight-bearing x-rays of the patient's left knee show minimal joint space narrowing, no acute bony abnormalities Assessment & Plan Assessment & Plan (1) Left knee pain: Code(s): M25.562 - Pain in left knee Plan Ms. Gaines presents with progressively worsening left knee pain and mechanical symptoms most likely due to a tear of her medial meniscus. Thus, I will send the patient for an MRI of her left knee for further evaluation. I will see her back once the MRI is completed to discuss the findings and treatment options. She will continue with her activity modifications in the meantime. Feel free to call me at any time should questions regarding her orthopedic management arise. Thank you very much for asking me to see this very friendly patient. I spent 22 minutes in reviewing the patient's records and imaging studies, seeing the patient and documenting in the medical record. Orders: Orders XR knee LT 3V 12/14/23 M25.562 - Pain in left knee MR knee LT wo con 12/14/23 M25.562 - Pain in left knee Coding Level of Care Code New Pt Level 2 (94937) Diagnoses Left knee pain M25.562
== END 2023-12-14 15:46 | disposition home or self-care (01) ==
PROVIDERS: PCP Internal Medicine Medical Oncology; Visit Provider Orthopaedic Surgery
DX: M25.562 Pain in left knee (principal)
CPT/HCPCS: 99202

== ENCOUNTER 2023-12-28 18:04 | Outpatient (REF) | payer OTHER, SELFPAY ==
--- NOTE | ~2023-12-28 | MR_ITS ---
EXAMINATION: MR KNEE WITHOUT CONTRAST, LEFT CLINICAL INFORMATION: Pain in the left knee. COMPARISON: X-ray of the left knee November 2023. TECHNIQUE: MRI of the knee without contrast was performed using routine sequences on a high-field scanner. FINDINGS: MENISCI: MEDIAL MENISCUS: Intact. LATERAL MENISCUS: Intact. LIGAMENTS: CRUCIATE: Intact. COLLATERAL: Intact. EXTENSOR MECHANISM: Intact. ARTICULAR CARTILAGE/BONE: PATELLOFEMORAL COMPARTMENT: Focal cartilage heterogeneity and subchondral cystic change and edema involving the median ridge and medial facet of the patella. There is non-uniform, up to high-grade cartilage loss in the midportion of the trochlea over near measuring approximately 15 mm craniocaudal and 15 mm transverse. Overall, [id number] patellofemoral arthrosis. MEDIAL COMPARTMENT: Minimal cartilage thinning along the lateral weightbearing femoral articular surface. Overall, minimal arthrosis. LATERAL COMPARTMENT: Minimal cartilage heterogeneity along the posterior weightbearing tibial articular surface. Femoral cartilage normal. Overall minimal arthrosis. JOINT FLUID AND BURSAE: Trace joint effusion. MR/MR knee LT wo con IMPRESSION: 1. [id number] patellofemoral arthrosis. Minimal arthrosis of the medial and lateral compartments. 2. Trace joint effusion. 3. Menisci intact
== END 2023-12-28 18:05 | disposition home or self-care (01) ==
LOC: HO.MRI 18:04
PROVIDERS: PCP Internal Medicine Medical Oncology; Visit Provider Orthopaedic Surgery
DX: M25.562 Pain in left knee (principal)
CPT/HCPCS: 73721

== ENCOUNTER 2024-01-08 12:40 | Outpatient (AMB) | payer OTHER, SELFPAY ==
--- NOTE | 2024-01-08 12:49 | MHC.OFFVIS ---
Intake Vital Signs 01/08/24 12:58 Height 5 ft 1 in Weight 185 lb BMI 35.0 BP 140/93 H Blood Pressure Location Lt brachial Position Sitting Pulse 85 Intake Visit Reasons: 6 month follow up Intake Note: Lola presents in the office as a 6 month follow up. CC: She states that she does not have anything different than before. Her PCP will not run hormone levels on her and she wants to know if you will check. 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 Allergies ampicillin [AMPICILLIN] Allergy (Severe, Verified 01/08/24 13:02) RASH Penicillins [PENICILLINS] Allergy (Severe, Verified 01/08/24 13:02) Rash Sulfa (Sulfonamide Antibiotics) [SULFA (SULFONAMIDE ANTIBIOTICS)] Allergy (Severe, Verified 01/08/24 13:02) RASH amoxicillin Allergy (Mild, Verified 01/08/24 13:02) Unknown penicillin V Allergy (Unknown, Verified 01/08/24 13:02) Rash Sulf-10 Allergy (Unknown, Uncoded 01/08/24 13:02) rash Sulfacet-R Allergy (Unknown, Uncoded 01/08/24 13:02) rash HPI 6 month follow up HPI Details 48 yr old f here for f/u RECAP: c/o loose stool-abdominal cramp, interrupting her life. She has had acid reflux as well. stress maybe playing a role she tried rifaximin and it didn;t help colonoscopy--nml bx, EGD 05/19-- hiatal hernia, erosive gastritis, esophagitis, lactase enzyme 4.4 --low h pylori breath--neg TTG neg INTERIM: she changed to mushroom coffee, she feels this has helped a lot no nausea or vomiting no abdominal pain no dysphagia no -heartburn---feels PPI is helping avoids greasy and fat foods she wants to have a check on cortisone and TSH due to weight gain EXAM: GENERAL: The patient is well developed and nontoxic. VITAL SIGNS:see workflow HEENT: Nonicteric sclerae, PERRLA, EOMI. Oropharynx clear. Moist mucous membranes. Conjunctivae appear well perfused. No thyroid mass. CHEST: Chest wall is nontender. HEART: Regular rate and rhythm without murmurs. LUNGS: Clear to auscultation bilaterally. ABDOMEN: Soft, positive bowel sounds, nontender, no organomegaly.no flank tenderness SKIN: No rash, no excessive bruising, petechiae, or purpura. NEUROLOGIC: Cranial nerves II-XII intact without motor/sensory deficit. A/P: 1/ Erosive gastritis, esophagitis, hiatal hernia--h pylori ne,g maybe acid hypersecretor 2/ lactose deficient 3/ weight gain PLAN: 1/cont with PPi and MV 2/ ordered TSH and cortisol 3/ advised on diet and exercise, intermittent fasting as an option [facility] Medical History (Updated 01/08/24 @ 13:12 by Felicitas Felix MD) Low back pain Chronic diarrhea Irritable bowel Heartburn Surgical History (Updated 12/14/23 @ 15:27 by Sheela Wilkinson CMA) Hx of left knee surgery (~1986) Hx of colonoscopy History of esophagogastroduodenoscopy (EGD) Family History Maternal Grandmother Breast cancer Diabetes Social History Household Members: Spouse and Children Household Members Other:: 1 child Alcohol intake: current Alcohol intake frequency: a few times a month Patient Tobacco Use Status: Never used Tobacco 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
[2024-01-08 12:58] VITALS: BP 140/93; PULSE 85; BMI 35.0
== END 2024-01-08 13:25 | disposition home or self-care (01) ==
PROVIDERS: PCP Internal Medicine Medical Oncology; Visit Provider Internal Medicine Gastroenterology
DX: R63.5 Abnormal weight gain (principal)
CPT/HCPCS: 99213

== ENCOUNTER → 2024-01-08 12:40 | Outpatient (BNVA) | payer OTHER, SELFPAY | PROVIDERS: PCP Internal Medicine Medical Oncology; Visit Provider Internal Medicine Gastroenterology ==

== ENCOUNTER 2024-01-11 07:52 | Outpatient (AMB) | payer OTHER, SELFPAY ==
[2024-01-11 07:53] VITALS: BMI 35.0
--- NOTE | 2024-01-11 07:53 | MHC.OFFVIS ---
Intake Vital Signs 01/11/24 07:53 Height 5 ft 1 in Weight 185 lb BMI 35.0 Intake Visit Reasons: ov-MRI follow-up Intake Note: Lola Todd is a 48 year old female who presents for MRI review of her Left knee. The patient reports continued mild intermittent discomfort along the anterior aspect of her left knee. She continues to go to the gym to exercise. She has taken Tylenol which gives her mild relief. Allergies ampicillin [AMPICILLIN] Allergy (Severe, Verified 01/11/24 07:58) RASH Penicillins [PENICILLINS] Allergy (Severe, Verified 01/11/24 07:58) Rash Sulfa (Sulfonamide Antibiotics) [SULFA (SULFONAMIDE ANTIBIOTICS)] Allergy (Severe, Verified 01/11/24 07:58) RASH amoxicillin Allergy (Mild, Verified 01/11/24 07:58) Unknown penicillin V Allergy (Unknown, Verified 01/11/24 07:58) Rash Sulf-10 Allergy (Unknown, Uncoded 01/08/24 13:02) rash Sulfacet-R Allergy (Unknown, Uncoded 01/08/24 13:02) rash Medication List - Last Reconciled 01/11/24 by Kevin Albert MD celecoxib (Celebrex) 200 mg PO DAILY PRN cholecalciferol (vitamin D3) 25 mcg PO DAILY lactobacillus combination no.9 (Adult 50 Plus Probiotic) PO DAILY pantoprazole 40 mg PO DAILY PFSH Medical History Low back pain Chronic diarrhea Irritable bowel Heartburn Surgical History Hx of left knee surgery (~1986) Hx of colonoscopy History of esophagogastroduodenoscopy (EGD) Family History Maternal Grandmother Breast cancer Diabetes Social History Household Members: Spouse and Children Household Members Other:: 1 child Alcohol intake: current Alcohol intake frequency: a few times a month Patient Tobacco Use Status: Never used Tobacco 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 Physical Exam Vital Signs: BMI result Body Mass Index 35.0 Const Other: Well-nourished well-developed very friendly female awake alert and oriented x3 in no acute distress Extrem Other: Bilateral lower extremity examination shows good capillary refill, no skin lesions noted, normal sensation light touch Left knee examination shows a minimal effusion, minimal crepitus with range of motion, Results Reviewed Results Reviewed: MRI of the patient's left knee shows no meniscus tearing, mild to moderate degenerative changes within the patellofemoral joint, no acute Assessment & Plan Assessment & Plan (1) Arthritis of left knee: Code(s): M17.12 - Unilateral primary osteoarthritis, left knee Plan Ms. Gaines presents with left knee pain due to patellofemoral joint early degenerative changes. I had a lengthy discussion with the patient regarding the treatment options. At this point the patient's symptoms are tolerable to her. She will continue with her activity modifications. We will hold off on a cortisone injection or a viscosupplementation injection for now. The patient will follow up with me on an as-needed basis should her symptoms worsen in any way. Feel free to call me at any time should questions regarding her orthopedic management arise. I spent 19 minutes in reviewing the patient's records and imaging studies, seeing the patient and documenting in the medical record. Medications: New celecoxib (Celebrex) 200 mg PO DAILY PRN 30 caps 2RF pain Coding Level of Care Code Est Pt Level 2 (98433) Diagnoses Arthritis of left knee M17.12
== END 2024-01-11 08:35 | disposition home or self-care (01) ==
PROVIDERS: PCP Internal Medicine Medical Oncology; Visit Provider Orthopaedic Surgery
DX: M17.12 Unilateral primary osteoarthritis, left knee (principal)
CPT/HCPCS: 99213

== ENCOUNTER 2024-01-11 07:52 | Outpatient (REF) | payer OTHER, SELFPAY ==
[2024-01-11 10:17] LABS: TSH reflex Free T4 1.71 uIU/mL (0.32-4.0)
[2024-01-11 10:19] LABS: Cortisol Random 6.8 ug/dL
== END 2024-01-11 07:53 | disposition home or self-care (01) ==
LOC: HO.LAB 07:52
PROVIDERS: Absent Provider Internal Medicine Gastroenterology; PCP Internal Medicine Medical Oncology; Visit Provider Orthopaedic Surgery
DX: M17.12 Unilateral primary osteoarthritis, left knee (principal); R63.5 Abnormal weight gain
CPT/HCPCS: 36415; 82533; 84443

== ENCOUNTER 2024-02-29 07:45 | Outpatient (REF) | payer OTHER, SELFPAY ==
--- NOTE | ~2024-02-29 | MM_ITS ---
EXAMINATION: MM SCREENING DIGITAL BREAST TOMOSYNTHESIS, BILATERAL CLINICAL INFORMATION: Screening. Asymptomatic. COMPARISON: Mammography: 03/22/2023, 02/21/2023, 02/15/2022, 01/25/2021, 01/03/2020, 12/03/2018 TECHNIQUE: Digital breast tomosynthesis is performed in both the craniocaudal and mediolateral oblique views along with computer-aided detection (CAD). Synthesized 2D images are generated from the tomosynthesis. FINDINGS: The breasts are heterogeneously dense, which may obscure small masses (ACR BI-RADS breast composition Category c). There are no suspicious masses, suspicious grouped calcifications, or areas of architectural distortion in either breast. The parenchymal pattern is stable from prior exams. No skin or axillary abnormality. MM/MM tomosynthesis screening BI IMPRESSION: No mammographic evidence of malignancy. ASSESSMENT: BI-RADS BI-RADS 1 - Negative RECOMMENDATION: Routine annual mammography screening. 1 year F/U This examination should not preclude the clinical evaluation of a suspicious palpable abnormality. This patient's information was entered into a reminder system with a target due date for their next mammogram.
== END 2024-02-29 07:46 | disposition home or self-care (01) ==
LOC: HO.MAMMO 07:45
PROVIDERS: PCP Internal Medicine Medical Oncology; Visit Provider Internal Medicine Medical Oncology
DX: Z12.31 Encounter for screening mammogram for malignant neoplasm of breast (principal)
CPT/HCPCS: 77063; 77067

== ENCOUNTER → 2024-02-29 08:00 | Outpatient (BNV) | payer OTHER, SELFPAY | PROVIDERS: PCP Internal Medicine Medical Oncology; Visit Provider Radiology Diagnostic Radiology | DX: Z12.31 Encounter for screening mammogram for malignant neoplasm of breast (principal) | CPT/HCPCS: 77063; 77067 ==

== ENCOUNTER 2024-03-27 14:34 | Outpatient (REF) | payer OTHER, SELFPAY ==
--- NOTE | ~2024-03-27 | XR_ITS ---
Examination: Lumbar spine and sacrum CLINICAL INFORMATION: Back pain, radiculopathy COMPARISON: None TECHNIQUE: 3 views of sacrum and coccyx and 3 views of lumbar spine FINDINGS: There is straightening of lumbar lordosis. There are 5 not ribs bearing vertebral bodies. There is narrowing of L3-L4, L4-L5 and L5-S1 intervertebral disc spaces. There is no spondylolysis or listhesis. There are changes of arthropathy in facet joints of L4-L5 and L5-S1. Pedicles are preserved. Sacroiliac joints unremarkable. There is no sacral lesions. Soft tissues are normal. XR/XR lumbar spine 2-3V IMPRESSION: Degenerative changes in lower lumbar spine.
--- NOTE | ~2024-03-27 | XR_ITS ---
Examination: Lumbar spine and sacrum CLINICAL INFORMATION: Back pain, radiculopathy COMPARISON: None TECHNIQUE: 3 views of sacrum and coccyx and 3 views of lumbar spine FINDINGS: There is straightening of lumbar lordosis. There are 5 not ribs bearing vertebral bodies. There is narrowing of L3-L4, L4-L5 and L5-S1 intervertebral disc spaces. There is no spondylolysis or listhesis. There are changes of arthropathy in facet joints of L4-L5 and L5-S1. Pedicles are preserved. Sacroiliac joints unremarkable. There is no sacral lesions. Soft tissues are normal. XR/XR sacrum coccyx min 2V IMPRESSION: Degenerative changes in lower lumbar spine.
== END 2024-03-27 14:35 | disposition home or self-care (01) ==
LOC: HO.LAB 14:34
PROVIDERS: PCP Internal Medicine Medical Oncology; Visit Provider Internal Medicine Medical Oncology
DX: M54.16 Radiculopathy, lumbar region (principal); M54.50 Low back pain, unspecified; E11.9 Type 2 diabetes mellitus without complications
CPT/HCPCS: 72100; 72220

== ENCOUNTER 2024-07-12 08:48 | Outpatient (AMB) | payer BC, SELFPAY ==
--- NOTE | 2024-07-12 08:48 | A.OFFVIS_ITS ---
Vital Signs 07/12/24 08:51 Height 5 ft 1 in Weight 168 lb 12.095 oz BMI 31.9 BP 119/56 L Blood Pressure Location Lt brachial Position Sitting Pulse 61 Intake Visit Reasons: 6 month follow up Intake Note: Lola presents in the office as a 6 month follow up. CC: She states that she is not having any concerns. She states she has not had any bad GI issues - she states the past couple weeks she has been more on the more constipated side but she feels like she needs to take in more fiber. Allergies ampicillin [AMPICILLIN] Allergy (Severe, Verified 07/12/24 08:52) RASH Penicillins [PENICILLINS] Allergy (Severe, Verified 07/12/24 08:52) Rash Sulfa (Sulfonamide Antibiotics) [SULFA (SULFONAMIDE ANTIBIOTICS)] Allergy (Severe, Verified 07/12/24 08:52) RASH amoxicillin Allergy (Mild, Verified 07/12/24 08:52) Unknown penicillin V Allergy (Unknown, Verified 07/12/24 08:52) Rash Sulf-10 Allergy (Unknown, Uncoded 07/12/24 08:52) rash Sulfacet-R Allergy (Unknown, Uncoded 07/12/24 08:52) rash HPI HPI 6 month follow up: Details: 48 yr old f here for f/u RECAP: c/o loose stool-abdominal cramp, interrupting her life. She has had acid reflux as well. stress maybe playing a role she tried rifaximin and it didn;t help colonoscopy--nml bx, EGD 05/19-- hiatal hernia, erosive gastritis, esophagitis, lactase enzyme 4.4 --low h pylori breath--neg TTG neg TSH- nml cortisol - low normal INTERIM: she is on zepbound, doing well no nausea or vomiting at this time no abdominal pain no dysphagia no -heartburn---still taking PPI avoids greasy and fat foods as before EXAM: GENERAL: The patient is well developed and nontoxic. VITAL SIGNS:see workflow HEENT: Nonicteric sclerae, PERRLA, EOMI. Oropharynx clear. Moist mucous m embranes. Conjunctivae appear well perfused. No thyroid mass. CHEST: Chest wall is nontender. HEART: Regular rate and rhythm without murmurs. LUNGS: Clear to auscultation bilaterally. ABDOMEN: Soft, positive bowel sounds, nontender, no organomegaly.no flank tenderness SKIN: No rash, no excessive bruising, petechiae, or purpura. NEUROLOGIC: Cranial nerves II-XII intact without motor/sensory deficit. A/P: 1/ Erosive gastritis, esophagitis, hiatal hernia--h pylori ne,g maybe acid hypersecretor 2/ lactose deficient 3/ weight gain on zepbound now PLAN: 1/cont with PPi and MV 2/ recheck cortisol f/u prn PFSH Medical History Low back pain Chronic diarrhea Irritable bowel Heartburn Surgical History Hx of left knee surgery (~1986) Hx of colonoscopy History of esophagogastroduodenoscopy (EGD) Family History Maternal Grandmother Breast cancer Diabetes Social History Household Members: Spouse and Children Household Members Other:: 1 child Alcohol intake: current Alcohol intake frequency: a few times a month Patient Tobacco Use Status: Never used Tobacco 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 - Other specified abnormal findings of blood chemistry Coding Level of Care Code Est Pt Level 3 (52161) Diagnoses Low serum cortisol level R79.89
[2024-07-12 08:51] VITALS: BP 119/56; PULSE 61; BMI 31.9
== END 2024-07-12 09:08 | disposition home or self-care (01) ==
PROVIDERS: PCP Internal Medicine Medical Oncology; Visit Provider Internal Medicine Gastroenterology
DX: R79.89 Other specified abnormal findings of blood chemistry (principal)
CPT/HCPCS: 99213

== ENCOUNTER → 2024-07-12 08:48 | Outpatient (BNVA) | payer OTHER, SELFPAY | PROVIDERS: PCP Internal Medicine Medical Oncology; Visit Provider Internal Medicine Gastroenterology ==

== ENCOUNTER 2024-08-03 07:54 | Outpatient (REF) | payer BC, SELFPAY ==
[2024-08-03 08:53] LABS: Alanine Aminotransferase 15 U/L (0-31); Albumin Level 4.3 g/dL (3.5-5.0); Alkaline Phosphatase 43 U/L (39-117); Anion Gap 11 (12-20); Aspartate Amino Transferase 12 U/L (5-31); Bilirubin Total 0.3 mg/dL (0.0-1.0); Blood Urea Nitrogen 19 mg/dL (9-16); Calcium 9.9 mg/dL (8.4-10.2); Carbon Dioxide 24 mmol/L (22-29); Chloride 108 mmol/L (96-108); Estimated Glomerular Filt Rate 59; Glucose Random 97 mg/dL (60-115); Potassium 4.2 mmol/L (3.3-5.1); Sodium 139 mmol/L (135-145); Total Protein 7.1 g/dL (6.5-8.0)
[2024-08-03 09:17] LABS: Cortisol Random 9.6 ug/dL
[2024-08-12 16:49] LABS: Cortisol, Free 0.61 mcg/dL
== END 2024-08-03 07:55 | disposition home or self-care (01) ==
LOC: HO.LAB 07:54
PROVIDERS: PCP Internal Medicine Medical Oncology; Referring Provider Internal Medicine Medical Oncology; Visit Provider Internal Medicine Gastroenterology
DX: R79.89 Other specified abnormal findings of blood chemistry (principal); E11.21 Type 2 diabetes mellitus with diabetic nephropathy; N18.9 Chronic kidney disease, unspecified
CPT/HCPCS: 36415; 80053; 82530; 82533

== ENCOUNTER 2025-01-25 08:02 | Outpatient (REF) | payer BC, SELFPAY ==
[2025-01-25 08:41] LABS: MANUAL DIFF FLAG NO
[2025-01-25 09:18] LABS: Basophils Percent Auto 0.3 % (0-2); Eosinophils Absolute Auto 0.1 X10*3/uL (0.0-0.4); Eosinophils Percent Auto 1.5 % (0-4); Hematocrit 39.5 % (37.0-47.0); Hemoglobin 13.6 g/dl (12.0-16.0); Imm Gran Abs Auto 0.01 X10*3/uL (0.00-0.03); Imm Gran Pct Auto 0.1 % (0.0-0.4); Lymphocytes Absolute Auto 2.7 X10*3/uL (1.2-4.9); Lymphocytes Percent Auto 39.7 % (20-40); Mean Corpuscular HGB Conc 34.4 g/dl (31.0-35.0); Mean Corpuscular Hemoglobin 31.4 pg (27.0-33.0); Mean Corpuscular Volume 91.2 fL (80.0-98.0); Mean Platelet Volume 11.2 fL (9.4-12.3); Monocytes Absolute Auto 0.5 X10*3/uL (0.1-1.2); Monocytes Percent Auto 7.8 % (2-11); Neutrophils Absolute Auto 3.4 x10*3/uL (2.0-8.3); Neutrophils Percent Auto 50.6 % (45-73); Platelet Count 182 X10*3/uL (160-400); Red Blood Count 4.33 X10*6/uL (4.20-5.50); Red Cell Distribution Width 13.2 % (11.0-16.0); White Blood Count 6.8 X10*3/uL (4.8-10.8)
[2025-01-25 09:38] LABS: Estimated Average Glucose 105 mg/dL; Hemoglobin A1c % 5.3 % (<6.0)
[2025-01-25 10:16] LABS: Alanine Aminotransferase 22 U/L (0-31); Albumin Level 4.5 g/dL (3.5-5.0); Alkaline Phosphatase 44 U/L (39-117); Anion Gap 11 (12-20); Aspartate Amino Transferase 25 U/L (5-31); Bilirubin Total 0.5 mg/dL (0.0-1.0); Blood Urea Nitrogen 21 mg/dL (9-16); Calcium 9.7 mg/dL (8.4-10.2); Carbon Dioxide 24 mmol/L (22-29); Chloride 108 mmol/L (96-108); Cholesterol 207 mg/dL (<200); Estimated Glomerular Filt Rate > 60; Glucose Fasting 86 mg/dL (60-99); HDL Cholesterol 50 mg/dL (>40); LDL Cholesterol Calculated 141 mg/dL (<100); Potassium 4.6 mmol/L (3.3-5.1); Sodium 138 mmol/L (135-145); Total Protein 7.2 g/dL (6.5-8.0); Triglycerides 84 mg/dL (<150)
== END 2025-01-25 08:03 | disposition home or self-care (01) ==
LOC: HO.LAB 08:02
PROVIDERS: PCP Internal Medicine Medical Oncology; Visit Provider Internal Medicine Medical Oncology
DX: E11.9 Type 2 diabetes mellitus without complications (principal); E66.9 Obesity, unspecified; E78.2 Mixed hyperlipidemia
CPT/HCPCS: 36415; 80053; 80061; 83036; 85025

== ENCOUNTER 2025-03-05 12:18 | Outpatient (REF) | payer BC, SELFPAY ==
--- OUTSIDE RECORDS SUMMARY | 2025-03-05 13:30 | XMS_ITS ---
Author Organization Stephen Rausch III, MD Address [address] [place] [address] Care Team Providers Care Detonator Maker Name Role Phone Stephen Rausch Primary Care Provider [phone] Allergies Allergen (clinical drug ingredient) Drug/Non Drug Allergy documented on EMR Reaction Allergy Type Onset Date Status sulfacetamide Sulfacetamide Unknown Drug Allergy Active Penicillin Unknown Drug Allergy Active ampicillin Ampicillin Unknown Drug Allergy Activ e sulfamethoxazole / trimethoprim Bactrim Unknown Drug Allergy Active Medications Medication SIG (Take, Route, Frequency, Duration) Notes Start Date End Date Status Zepbound 7.5 MG/0.5ML 0.5 mL Subcutaneou s weekly disp 4 pens 7.5 mg/week 11/08/2024 Active dexAMETHasone 2 MG 1 tablet Orally twic e a day 03/27/2024 Active Celecoxib 200 MG TAKE 1 CAPSULE BY MOUTH DAILY NEEDED FOR PAIN Oral Active Gabapentin 100 MG 2 capsules Orally 3 times a day 04/19/2024 Active Pantoprazole Sodium 40 MG 1 tablet Orally Once a day Active Social History Tobacco Use: Social History Observation Description Date Details (start date - stop date) Never Smoker NA - NA Sex Assigned At : Social History Observation Description Sex Assigned At Female Tobacco Use/Smoking Question Answer Notes Patient is a nonsmoker Additional Findings: Tobacco Non-User Aggressive non-smoker Vital Signs Temperature 98.4 degrees Fahrenheit 02/01/20 25 Blood pressure systolic 132 mm Hg 02/01/20 25 Blood pressure diastolic 71 mm Hg 025 Heart Rate 64 /min 01/31/2025 Height 62 in 01/31/2025 Weight 154 lbs 01/31/2025 BMI 28.16 kg/m2 01/31/2025 Encounters Encounter Location Date Provider Diagnosis Stephen Rausch III, MD [address] [place] [address] [place] [address] 01/31/2025 Stephen Rausch Factor 5 Leiden mutation, heterozygous D68.51 ; Hypercalcemia E83.52 ; Mixed hyperlipidemia E78.2 ; Thrombophilia D68.59 ; Chronic kidney disease, unspecified CKD stage N18.9 ; Lumbar radiculopathy M54.16 and Overweight E66.3 Assessments Encounter Date Diagnosis (ICD Code) Assessment Notes Treat ment Notes Treatment Clinical Notes 01/31/2025 Factor 5 Leiden mutation, heterozygous (ICD-10 - D68.51) There have been no cases of thromboembolism in her family. She has had no blood clotting. She will continue to be observed for this problem. 01/31/2025 Hypercalcemia (ICD-10 - E83.52) Her calcium level is now in the normal range. Observation will continue.Another calcium level done prior to her next visit. 01/31/2025 Mixed hyperlipidemia (ICD-10 - E78.2) Comprehensive blood work will be done prior to her next visit which will include a fasting lipid profile. 01/31/2025 Thrombophilia (ICD-10 - D68.59) An ultrasound was ordered to evaluate the pain in her right calf muscle, but there is no clinical sign of clot. 01/31/2025 Chronic kidney disease, unspecified CKD stage (ICD-10 - N18.9) Her renal function is now in the normal range. This problem has resolved. 01/31/2025 Lumbar radiculopathy (ICD-10 - M54.16) This is a new exacerbation. She has used heat and rest. The x-ray showed degenerative changes but no fracture. She was given a course of cyclobenzaprine and dexamethasone. 01/31/2025 Overweight (ICD-10 - E66.3) Her weight has declined from a maximum of 187 pounds to its current value of 154. She has lost 23 pounds. She was continued on Zepbound 5 mg weekly. Plan Of Treatment Medication Medication Name Sig Start Date Stop Date Notes Zepbound 7.5 MG/0.5ML 0.5 mL Subcutaneou s weekly 11/08/2024 disp 4 pens 7.5 mg/week dexAMETHasone 2 MG 1 tablet Orally twic e a day 03/27/2024 Celecoxib 200 MG TAKE 1 CAPSULE BY [facility] DAILY NEEDED FOR PAIN Oral Gabapentin 100 MG 2 capsules Orally 3 times a day 04/19/2024 Pantoprazole Sodium 40 MG 1 tablet Orall y Once a day Next Appt Details Follow Up: 4 Weeks, Reason: OV Provider Name:Stephen Rausch, 03/31/2025 02:45:00 PM, [address] [place] [address] [address], [place], [id number], Provider Name:Stephen Rausch, 05/12/2025 09:30:00 AM, [address] [place] [address] [address], [place], [phone], Progress Notes * Ivory GAINESDOB:[birth year] (49 yo F)Acc No.[id number]:01/31/2025 Progress Notes Patient:?Ivory GAINES Provider:?Stephen Rausch MD :1975???Age:49 Y???Sex:Female D ate:01/31/2025 Address:[address] [place], [place] [address]David Viveros [id number] Subjective: * Chief Complaints: * ??? * HPI: ???COVID-19 Screening:? stress, not diabetic. ?Questions?Have you had any new onset fever, chills, cough, congestion, sore throat, shortness of breath, muscle aches??No * ROS:?General/Constitutional:?pain?only normal aches and pains.?Chills?denies.?Fatigue?admits.?Fever?denies.?ENT:?Decreased hearing?denies.?Respiratory:?Cough?denies.?Cardiovascular:?Chest pain with exertion?denies.?Dyspnea on exertion?denies.?Shortness of breath?denies.?Gastrointestinal:?Constipation?denies.?Decreased appetite?denies.?Diarrhea?denies.?Heartburn?denies.?Nausea?denies.?Rectal bleeding?denies.?Vomiting?denies.?Hematology:?bruising?denies.?petechiae?denies.?Swollen glands?none have been noted.?Genitourinary:?Frequent urination?denies.?Musculoskeletal:?Muscle aches?denies.?Painful joints?denies.?Sciatica?denies.?Weakness?denies.?Skin:?Itching?denies.?Rash?denies.?Skin lesion(s)?denies.?Neurologic:?Difficulty speaking?denies.?Dizziness?denies.?Headache?denies.?Low back pain?denies.?Psychiatric:?Depressed mood?denies.? * Medical History:? * Surgical History:?left knee arthroscopic surgery 1988No history * Hospitalization/Major Diagno stic Procedure:?No history * Family History:?Father: duncan viveros.?Mother: alive.?1 sister(s) - healthy. 1 son(s) - healthy. .? 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 She has a child, Wayne. * Medications:?TakingGabapenti n 100 MG Capsule 2 capsules Orally 3 times a day Pantoprazole Sodium 40 MG Tablet Delayed Release 1 tablet Orally Once a day dexAMETHasone 2 MG Tablet 1 tablet Orally twice a day Celecoxib 200 MG Capsule TAKE 1 CAPSULE BY MOUTH DAILY NEEDED FOR PAIN Oral Zepbound 7.5 MG/0.5ML Solution Auto-injector 0.5 mL Subcutaneous weekly , Notes to Pharmacist: disp 4 pens 7.5 mg/weekMedication List reviewed and reconciled with the patientTaking Gabapentin 100 MG Capsule 2 capsules Orally 3 times a day Taking Pantoprazole Sodium 40 MG Tablet Delayed Release 1 tablet Orally Once a day Taking dexAMETHasone 2 MG Tablet 1 tablet Orally twice a day Taking Celecoxib 200 MG Capsule TAKE 1 CAPSULE BY MOUTH DAILY NEEDED FOR PAIN Oral Taking Zepbound 7.5 MG/0.5ML Solution Auto-injector 0.5 mL Subcutaneous weekly , Notes to Pharmacist: disp 4 pens 7.5 mg/weekMedication List reviewed and reconciled with the patient * Allergies:?BactrimSulfacetam ideAmpicillinPenicillinno[Allergies Verified] Objective: * Vitals:?Ht: 62, Wt: 154, BMI :28.16, BP: 132/71, HR: 64, Temp: 98.4, Ht-cm: 157.48, Wt-k.85. * ???Past Orders: Lab:Complete Blood Count Aut o Diff * Collection Date 01/25/2025 11/11/2023 08/19/2023 Collection Time 08:40 AM 07:27 AM 08:04 AM Order Date 01/25/2025 11/11/2023 08/19/2023 White Blood Count 6.8 (Ref Range: 4.8-10.8 X10*3/uL) 6.7 (Ref Range: 4.8-10.8 X10*3/uL) 5.4 (Ref Range: 4.8-10.8 X10*3/uL) Red Blood Count 4.33 (Ref Range: 4.20-5.50 X10*6/uL) 4.39 (Ref Range: 4.20-5.50 X10*6/uL) 4.26 (Ref Range: 4.20-5.50 X10*6/uL) Hemoglobin 13.6 (Ref Range: 12.0-16.0 g/dl) 13.5 (Ref Range: 12.0-16.0 g/dl) 12.9 (Ref Range: 12.0-16.0 g/dl) Hematocrit 39.5 (Ref Range: 37.0-47.0 %) 40.6 (Ref Range: 37.0-47.0 %) 38.7 (Ref Range: 37.0-47.0 %) Mean Corpuscular Volume 91.2 (Ref Range: 80.0-98.0 fL) 92.5 (Ref Range: 80.0-98.0 fL) 90.8 (Ref Range: 80.0-98.0 fL) Mean Corpuscular Hemoglobin 31.4 (Ref Range: 27.0-33.0 pg) 30.8 (Ref Range: 27.0-33.0 pg) 30.3 (Ref Range: 27.0-33.0 pg) Mean Corpuscular HGB Conc 34.4 (Ref Range: 31.0-35.0 g/dl) 33.3 (Ref Range: 31.0-35.0 g/dl) 33.3 (Ref Range: 31.0-35.0 g/dl) Red Cell Distribution Width 13.2 (Ref Range: 11.0-16.0 %) 13.2 (Ref Range: 11.0-16.0 %) 13.2 (Ref Range: 11.0-16.0 %) Platelet Count 182 (Ref Range: 160-400 X10*3/uL) 206 (Ref Range: 160-400 X10*3/uL) 202 (Ref Range: 160-400 X10*3/uL) Mean Platelet Volume 11.2 (Ref Range: 9.4-12.3 fL) 11.7 (Ref Range: 9.4-12.3 fL) 11.0 (Ref Range: 9.4-12.3 fL) Neutrophils Percent Auto 50.6 (Ref Range: 45-73 %) 52.0 (Ref Range: 45-73 %) 49.9 (Ref Range: 45-73 %) Imm Gran Pct Auto 0.1 (Ref Range: 0.0-0.4 %) 0.3 (Ref Range: 0.0-0.4 %) 0.2 (Ref Range: 0.0-0.4 %) Lymphocytes Percent Auto 39.7 (Ref Range: 20-40 %) 38.3 (Ref Range: 20-40 %) 38.9 (Ref Range: 20-40 %) Monocytes Percent Auto 7.8 (Ref Range: 2-11 %) 8.0 (Ref Range: 2-11 %) 8.9 (Ref Range: 2-11 %) Eosinophils Percent Auto 1.5 (Ref Range: 0-4 %) 0.9 (Ref Range: 0-4 %) 1.5 (Ref Range: 0-4 %) Basophils Percent Auto 0.3 (Ref Range: 0-2 %) 0.5 (Ref Range: 0-2 %) 0.6 (Ref Range: 0-2 %) NRBC Pct Auto 0.0 (Ref Range: 0.0-0.2 /100WBC) 0.0 (Ref Range: 0.0-0.2 /100WBC) 0.0 (Ref Range: 0.0-0.2 /100WBC) Neutrophils Absolute Auto 3.4 (Ref Range: 2.0-8.3 x10*3/uL) 3.5 (Ref Range: 2.0-8.3 x10*3/uL) 2.7 (Ref Range: 2.0-8.3 x10*3/uL) Imm Gran Abs Auto 0.01 (Ref Range: 0.00-0.03 X10*3/uL) 0.02 (Ref Range: 0.00-0.03 X10*3/uL) 0.01 (Ref Range: 0.00-0.03 X10*3/uL) Lymphocytes Absolute Auto 2.7 (Ref Range: 1.2-4.9 X10*3/uL) 2.6 (Ref Range: 1.2-4.9 X10*3/uL) 2.1 (Ref Range: 1.2-4.9 X10*3/uL) Monocytes Absolute Auto 0.5 (Ref Range: 0.1-1.2 X10*3/uL) 0.5 (Ref Range: 0.1-1.2 X10*3/uL) 0.5 (Ref Range: 0.1-1.2 X10*3/uL) Eosinophils Absolute Auto 0.1 (Ref Range: 0.0-0.4 X10*3/uL) 0.1 (Ref Range: 0.0-0.4 X10*3/uL) 0.1 (Ref Range: 0.0-0.4 X10*3/uL) Basophils Absolute Auto 0.0 (Ref Range: 0.0-0.2 X10*3/uL) 0.0 (Ref Range: 0.0-0.2 X10*3/uL) 0.0 (Ref Range: 0.0-0.2 X10*3/uL) NRBC Abs Auto 0.000 (Ref Range: 0.0-0.012 X10*3/uL) 0.000 (Ref Range: 0.0-0.012 X10*3/uL) 0.000 (Ref Range: 0.0-0.012 X10*3/uL) * Lab:Hemoglobin A1c * Collection Date 01/25/2025 11/11/2023 08/19/2023 Collection Time 08:40 AM 07:27 AM 08:04 AM Order Date 12/19/2024 11/11/2023 08/18/2023 Hemoglobin A1c % 5.3 (Ref Range: <6.0 %) 5.3 (Ref Range: <6.0 %) 5.3 (Ref Range: <6.0 %) Estimated Average Glucose 105 (Ref Range: mg/dL) 105 (Ref Range: mg/dL) 105 (Ref Range: mg/dL) Clinical Info: Please fast for 12-1 4 hours prior to having this labwork done. You may have black coffee or tea with no milk or sugar. May have water,Please have this testing 1 week prior to your next appointment,PLEASE FAX COMPLETED RESULTS TO [phone] * Lab:Lipid Panel * Collection Date 01/25/2025 11/11/2023 08/19/2023 Collection Time 08:40 AM 07:27 AM 08:04 AM Order Date 12/19/2024 11/11/2023 08/18/2023 Triglycerides 84 (Ref Range: <150 mg/dL) 79 (Ref Range: <150 mg/dL) 56 (Ref Range: <150 mg/dL) Cholesterol 207?H (Ref Range: <200 mg/dL) 211?H (Ref Range: <200 mg/dL) 210?H (Ref Range: <200 mg/dL) LDL Cholesterol Calculated 141?H (Ref Range: <100 mg/dL) 146?H (Ref Range: <100 mg/dL) 143?H (Ref Range: <100 mg/dL) HDL Cholesterol 50 (Ref Range: >40 mg/dL) 50 (Ref Range: >40 mg/dL) 56 (Ref Range: >40 mg/dL) Clinical Info: Please fast for 12-1 4 hours prior to having this labwork done. You may have black coffee or tea with no milk or sugar. May have water,Please have this testing 1 week prior to your next appointment,PLEASE FAX COMPLETED RESULTS TO [phone] * Lab:[facility] Denice l Fast * Collection Date 01/25/2025 08/19/2023 04/26/2023 Collection Time 08:40 AM 08:04 AM 06:45 AM Order Date 01/25/2025 08/19/2023 04/26/2023 Sodium 138 (Ref Range: 135-145 mmol/L) 139 (Ref Range: 135-145 mmol/L) 139 (Ref Range: 135-145 mmol/L) Bilirubin Total 0.5 (Ref Range: 0.0-1.0 mg/dL) 0.4 (Ref Range: 0.0-1.0 mg/dL) 0.6 (Ref Range: 0.0-1.0 mg/dL) Aspartate Amino Transferase 25 (Ref Range: 5-31 U/L) 20 (Ref Range: 5-31 U/L) 19 (Ref Range: 5-31 U/L) Alanine Aminotransferase 22 (Ref Range: 0-31 U/L) 18 (Ref Range: 0-31 U/L) 16 (Ref Range: 0-31 U/L) Total Protein 7.2 (Ref Range: 6.5-8.0 g/dL) 7.4 (Ref Range: 6.5-8.0 g/dL) 7.3 (Ref Range: 6.5-8.0 g/dL) Albumin Level 4.5 (Ref Range: 3.5-5.0 g/dL) 4.4 (Ref Range: 3.5-5.0 g/dL) 4.3 (Ref Range: 3.5-5.0 g/dL) Alkaline Phosphatase 44 (Ref Range: 39-117 U/L) 50 (Ref Range: 39-117 U/L) 50 (Ref Range: 39-117 U/L) Potassium 4.6 (Ref Range: 3.3-5.1 mmol/L) 4.6 (Ref Range: 3.3-5.1 mmol/L) 4.4 (Ref Range: 3.3-5.1 mmol/L) Chloride 108 (Ref Range: 96-108 mmol/L) 107 (Ref Range: 96-108 mmol/L) 105 (Ref Range: 96-108 mmol/L) Carbon Dioxide 24 (Ref Range: 22-29 mmol/L) 24 (Ref Range: 22-29 mmol/L) 25 (Ref Range: 22-29 mmol/L) Anion Gap 11?L (Ref Range: 12-20) 13 (Ref Range: 12-20) 13 (Ref Range: 12-20) Blood Urea Nitrogen 21?H (Ref Range: 9-16 mg/dL) 18?H (Ref Range: 9-16 mg/dL) 21?H (Ref Range: 9-16 mg/dL) Creatinine 0.85 (Ref Range: 0.5-1.4 mg/dL) 0.85 (Ref Range: 0.5-1.4 mg/dL) 0.77 (Ref Range: 0.5-1.4 mg/dL) Estimated Glomerular Filt Rate > 60 > 60 > 60 Glucose Fasting 86 (Ref Range: 60-99 mg/dL) 99 (Ref Range: 60-99 mg/dL) 98 (Ref Range: 60-99 mg/dL) Calcium 9.7 (Ref Range: 8.4-10.2 mg/dL) 10.0 (Ref Range: 8.4-10.2 mg/dL) 10.3?H (Ref Range: 8.4-10.2 mg/dL) * Examination: ???General Examination: ?GENERAL APPEARANCE:?pleasant, well nourished, well developed, in no acute distress, calm and relaxed, overweight, woman.?HEAD:?atraumatic, normocephalic.?EYES:?eomi, perrla, anicteric, conjugate.?EARS:?normal.?NOSE:?septum intact.?ORAL CAVITY:?normal, unremarkable.?NECK/THYROID:?no jugular venous distention, no carotid bruit, thyroid normal.?LYMPH NODES:?no enlarged lymph nodes,spleen normal.?SKIN:?no suspicious lesions, anicteric.?HEART:?no clicks, gallops, murmurs, or rubs, regular rhythm, S1, S2 normal, no s3, or vascular bruits.?LUNGS:?clear to auscultation .?BREASTS:?Not examined.?ABDOMEN:?bowel sounds normal, no ascites, no organomegaly, no mass, overweight.?RECTAL EXAM:?not examined.?MUSCULOSKELETAL:?extremities unremarkable, no clubbing, cyanosis or edema.?PERIPHERAL PULSES:?normal.?NEUROLOGIC:?alert and oriented, cranial nerves 2-12 grossly intact, deep tendon reflexes 2+ symmetrical, motor strength normal upper and lower extremities, sensory exam intact.?PSYCH:?alert, oriented.? Assessment: * Assessment: 1.?Factor 5 Leiden mutation, heterozygous - D68.51 (Primary)???Notes :There have been no cases of thromboembolism in her family. She has had no blood clotting. She will continue to be observed for this problem.???2.?Hypercalcemia - E83.52???Notes :Her calcium level is now in the normal range. Observation will continue.Another calcium level done prior to her next visit.???3.?Mixed hyperlipidemia - E78.2???Notes :Comprehensive blood work will be done prior to her next visit which will include a fasting lipid profile.???4.?Thrombophilia - D68.59???Notes :An ultrasound was ordered to evaluate the pain in her right calf muscle, but there is no clinical sign of clot.???5.?Chronic kidney disease, unspecified CKD stage - N18.9???Notes :Her renal function is now in the normal range.? This problem has resolved.???6.?Lumbar radiculopathy - M54.16???Notes :This is a new exacerbation. She has used heat and rest. The x-ray showed degenerative changes but no fracture. She was given a course of cyclobenzaprine and dexamethasone.???7.?Overweight - E66.3???Notes :Her weight has declined from a maximum of 187 pounds to its current value of 154. She has lost 23 pounds. She was continued on Zepbound 5 mg weekly.??? Plan: * Treatment: * Procedure Codes:? * Preventive Medicine:? ??Counseling:?Care goal follow-up plan:?Counseling for abnormal BMI given?Yes ?Above Normal BMI Follow-up?Dietary management education, guidance, and counseling, Dietary needs education, Exercise promotion: strength training, Exercise promotion: stretching, Feeding regime, Giving encouragement to exercise, Lifestyle education regarding diet, Nutrition / feeding management, Nutrition therapy, Prescribed activity/exercise education, Prescribed diet education, Prescribed dietary intake, Special diet education, Weight monitoring , Intervention, Order not done: Medical or Other reason not done * Follow Up:?4 Weeks (Reason: OV) * Images: * Sign off status: Completed true * Provider:?Stephen Rausch MD Date:?01/2025 Generated for Annamaria gar/Pravin/eTransmitting on:?03/05/2025 01:29 PM EDT History and Physical Notes * HPI (History of Present Illness) Category Sub-Category Detail Notes COVID-19 Screening Questions Have you had any new onset fever, chills, cough, congestion, sore throat, shortness of breath, muscle aches?: No Examination Category Sub-Category Detail Notes General Examination GENERAL APPEARANCE: pleasant , well nourished, well developed, in no acute distress, calm and relaxed, overweight, woman HEAD: atraumatic, normocep halic EYES: eomi, perrla, anicte cheryl, conjugate EARS: normal NOSE: septum intact NECK/THYROID: no jugular venous di stention, no carotid bruit, thyroid normal HEART: no clicks, gallops, murmurs, or rubs, regular rhythm, S1, S2 normal, no s3, or vascular bruits LUNGS: clear to auscultatio n ABDOMEN: bowel sounds normal, no ascites, no organomegaly, no mass, overweight NEUROLOGIC: alert and oriented, cranial nerves 2-12 grossly intact, deep tendon reflexes 2+ symmetrical, motor strength normal upper and lower extremities, sensory exam intact SKIN: no suspicious lesion s, anicteric PERIPHERAL PULSES: normal BREASTS: Not examined MUSCULOSKELETAL: extremities unremark able, no clubbing, cyanosis or edema LYMPH NODES: no enlarged lymph no jose carlos,spleen normal RECTAL EXAM: not examined PSYCH: alert, oriented ORAL CAVITY: normal, unremarkable
--- OUTSIDE RECORDS SUMMARY | 2025-03-05 13:30 | XMS_ITS | Patient Health Record ---
Author Organization Stephen Rausch III, MD Address [address] [place] [address] [place] [address] Care Team Providers Care Glory Hole Tender Name Role Phone Stephen Rausch Primary Care Provider [phone] Allergies Allergen (clinical drug ingredient) Drug/Non Drug Allergy documented on EMR Reaction Allergy Type Onset Date Status sulfacetamide Sulfacetamide Unknown Drug Allergy Active Penicillin Unknown Drug Allergy Active ampicillin Ampicillin Unknown Drug Allergy Activ e sulfamethoxazole / trimethoprim Bactrim Unknown Drug Allergy Active Results Component Value Reference Range Notes XR sacrum coccyx min 2V Reviewed date:04/01/2024 09:16:59 AM Interpretation: Performing Lab: Notes/Report: [address] [address] XRay Report Signed Patient: Lola Gaines MR#: [id number] : 1975 Acct:[id number] Age/Sex: 48 / F ADM Date: 03/27/24 Loc: HO.LAB Attending Dr: Stephen Rausch MD Ordering Physician: Stephen Rausch MD Date of Service: 03/27/24 Procedure(s): XR sacrum coccyx min 2V Accession Number(s): [id number] cc: Stephen Rausch MD Examination: Lumbar spine and sacrum CLINICAL INFORMATION: Back pain, radiculopathy COMPARISON: None TECHNIQUE: 3 views of sacrum and coccyx and 3 views of lumbar spine FINDINGS: There is straightening of lumbar lordosis. There are 5 not ribs bearing vertebral bodies. There is narrowing of L3-L4, L4-L5 and L5-S1 intervertebral disc spaces. There is no spondylolysis or listhesis. There are changes of arthropathy in facet joints of L4-L5 and L5-S1. Pedicles are preserved. Sacroiliac joints unremarkable. There is no sacral lesions. Soft tissues are normal. XR/XR sacrum coccyx min 2V IMPRESSION: Degenerative changes in lower lumbar spine. Dictated By: Scotty Villalba MD Signed By: <Electronically signed by Scotty Villalba MD in OV> 03/27/241516 DD/ 1504 TD/TT: Percher: [address] [address] XRay Report Signed Patient: Duncan Gaines i MR#: [id number] : 1975 Acct:[id number] Age/Sex: 48 / F ADM Date: 03/27/24 Loc: HO.LAB Attending Dr: Stephen Rausch MD Ordering Physician: Stephen Rausch MD Date of Service: 03/27/24 Procedure(s): XR sacrum coccyx min 2V Accession Number(s): [id number] cc: Stephen Rausch MD Examination: Lumbar spine and sacrum CLINICAL INFORMATION : Back pain, radiculopathy COMPARISON: None TECHNIQUE: 3 views o f sacrum and coccyx and 3 views of lumbar spine FINDINGS: There is straightening of lumbar lordosis. There are 5 not ribs bearing vertebr al bodies. There is narrowing of L3-L4, L4-L5 and L5-S1 intervertebral disc spaces. There is no spondylolysis or listhesis. There are changes of arthropathy in facet joints of L4-L5 and L5-S1. Pedicles are preserved. Sacroiliac joints unremarkable. There is no sacral lesions. Soft tissues are normal. XR/XR sacrum coccyx min 2V IMPRESSION: Degenerative changes in lower lumbar spine. Dictated By: Scotty Villalba MD Signed By: <Electronically signed by Scotty Villalba MD in OV> 03/27/24 1517 DD/ 1504 TD/TT: Percher: URINE DIP STICK Reviewed date:05/09/2024 09:18:06 AM Interpretation: Performing Lab: Notes/Report: SG 1.020 1.005 - 1.025 pH 5.0 5.0 - 9.0 ROBI Negative Negative - NIT Negative Negative - PRO 15 Negative - Trace GLU Negative Negative - KET Negative Negative - UBG 0.2 0.1 - 1.8 YANIQUE Negative 0.2 - 1.3 BLD Positive Negative - Lipid Panel Reviewed date:01/31/2025 03:31:50 PM Interpretation: Performing Lab:[facility], [address] [place] [phone] Notes/Report: Triglycerides 84 <150 mg/dL Desirable Triglyceride: less than 150 mg/dL Borderline High Triglyceride 150-199 mg/dL High Triglyceride: 200-499 mg/dL Very High Triglyceride: greater than or equal to 5OO mg/dL Cholesterol 207 <200 mg/dL Desirable Cholesterol: less than 200 mg/dL Borderline High Cholesterol: 200-239 mg/dL High Cholesterol: greater than 239 mg/dL LDL Cholesterol Calculated 141 <100 mg/dL Desirable LDL: less than 100 mg/dL Near Optimal/Above Optimal LDL: 110-129 mg/dL Borderline High LDL: 130-159 mg/dL High LDL: 160-189 mg/dL Very High LDL: greater than or equal to 190 mg/dL HDL Cholesterol 50 >40 mg/dL Desirable HDL: greater than 40 mg/dL Note: This HDL assay may give artificially low results in patients with liver disease. Hemoglobin A1c Reviewed date:01/31/2025 03:31:50 PM Interpretation: Performing Lab:[facility], [address] [place] [phone] Notes/Report: Hemoglobin A1c % 5.3 <6.0 % Hemoglobin A1C Reference Range Adults: 4.8 - 6.0 % Non diabetic: < 6.0 % Goal: < 7.0 % Additional Action Suggested: > 8.0 % Note: Hemoglobin A1c results are invalid for patients with abnormal amounts of HbF. Blood transfusions may impact the HbA1c concentration in the patient sample. Estimated Average Glucose 105 eAG = Estimated average glucose which is %A1C expressed as average glucose, using the formula of the S5Q-Wrasvvr Average Glucose study (ADAG), Diabetes Care, Vol.31,#8, 2007 XR lumbar spine 2-3V Reviewed date:04/01/2024 09:16:59 AM Interpretation: Performing Lab: Notes/Report: [address] [address] XRay Report Signed Patient: Lola Gaines MR#: [id number] : 1975 Acct:[id number] Age/Sex: 48 / F ADM Date: 03/27/24 Loc: HO.LAB Attending Dr: Setphen Rausch MD Ordering Physician: Stephen Rausch MD Date of Service: 03/27/24 Procedure(s): XR lumbar spine 2-3V Accession Number(s): [id number] cc: Stephen Rausch MD Examination: Lumbar spine and sacrum CLINICAL INFORMATION: Back pain, radiculopathy COMPARISON: None TECHNIQUE: 3 views of sacrum and coccyx and 3 views of lumbar spine FINDINGS: There is straightening of lumbar lordosis. There are 5 not ribs bearing vertebral bodies. There is narrowing of L3-L4, L4-L5 and L5-S1 intervertebral disc spaces. There is no spondylolysis or listhesis. There are changes of arthropathy in facet joints of L4-L5 and L5-S1. Pedicles are preserved. Sacroiliac joints unremarkable. There is no sacral lesions. Soft tissues are normal. XR/XR lumbar spine 2-3V IMPRESSION: Degenerative changes in lower lumbar spine. Dictated By: Scotty Villalba MD Signed By: <Electronically signed by Scotty Villalba MD in OV> 03/27/24 1517 DD/ 1500 TD/TT: Percher: [address] [address] XRay Report Signed Patient: Duncan Gaines i MR#: [id number] : 1975 Acct:[id number] Age/Sex: 48 / F ADM Date: 03/27/24 Loc: HO.LAB Attending Dr: Stephen Rausch MD Ordering Physician: Stephen Rausch MD Date of Service: 03/27/24 Procedure(s): XR lumbar spine 2-3V Accession Number(s): [id number] cc: Stephen Rausch MD Examination: Lumbar spine and sacrum CLINICAL INFORMATION : Back pain, radiculopathy COMPARISON: None TECHNIQUE: 3 views o f sacrum and coccyx and 3 views of lumbar spine FINDINGS: There is straightening of lumbar lordosis. There are 5 not ribs bearing vertebr al bodies. There is narrowing of L3-L4, L4-L5 and L5-S1 intervertebral disc spaces. There is no spondylolysis or listhesis. There are changes of arthropathy in facet joints of L4-L5 and L5-S1. Pedicles are preserved. Sacroiliac joints unremarkable. There is no sacral lesions. Soft tissues are normal. XR/XR lumbar spine 2-3V IMPRESSION: Degenerative changes in lower lumbar spine. Dictated By: Scotty Villalba MD Signed By: <Electronically signed by Scotty Villalba MD in OV> 03/27/24 1517 DD/ 1500 TD/TT: Percher: Diabetic Eye Exam Reviewed date:06/04/2024 03:37:21 PM Interpretation:undefined Performing Lab: Notes/Report: undefined Comprehensive Met. Panel Reviewed date:08/09/2024 07:54:04 PM Interpretation: Performing Lab:[facility], [address] [place] [phone] Notes/Report: Sodium 139 135-145 mmol/L Potassium 4.2 3.3-5.1 mmol/L Chloride 108 96-108 mmol/L Carbon Dioxide 24 22-29 mmol/L Anion Gap 11 12-20 Blood Urea Nitrogen 19 9-16 mg/dL Creatinine 1.00 0.5-1.4 mg/dL Estimated Glomerular Filt Rate 59 NOTE: For -Montserratian individuals, multiply the result by 1.210. Chronic Kidney Disease: Estimated GFR < 60 mL/min/1.73m2 Severe Kidney Disease: Estimated GFR < 15 mL/min/1.73m2 Glucose Random 97 60-115 mg/dL Calcium 9.9 8.4-10.2 mg/dL Bilirubin Total 0.3 0.0-1.0 mg/dL Aspartate Amino Transferase 12 5-31 U/L Alanine Aminotransferase 15 0-31 U/L Total Protein 7.1 6.5-8.0 g/dL Albumin Level 4.3 3.5-5.0 g/dL Alkaline Phosphatase 43 39-117 U/L Cortisol, Free Reviewed date:09/02/2024 05:45:30 AM Interpretation: Performing Lab:[facility], [address] [place] [phone] Notes/Report: Cortisol, Free 0.61 Adult Reference Ranges for Cortisol, MS, Free: 8:00 - 10:00 AM 0.07-0.93 mcg/dL 4:00 - 6:00 PM 0.04-0.45 mcg/dL 10:00 - 11:00 PM 0.04-0.35 mcg/dL This test was developed and its analytical performance characteristics have been determined by [employer]. It has not been cleared or approved by FDA. This assay has been validated pursuant to the CLIA regulations and is used for clinical purposes. THIS TEST WAS PERFORMED AT: [employer] [address] [place] [address] LUZ MARINA KIM MD,PHD,JANNY Cortisol Random Reviewed date:08/09/2024 07:54:04 PM Interpretation: Performing Lab:[address] [address] Notes/Report: Cortisol Random 9.6 Reference Range*: Before 10 am 6.2-19.4 ug/dL After 5 pm 2.3-11.9 ug/dL *Please interpret above results accordingly. This test was performed using the De Jesus chemiluminescent method. Values obtained from different assay methods cannot be used interchangeably. Patients receiving fludrocortisone, prednisolone or prednisone may show artificially elevated cortisol values due to cross-reactivity. Complete Blood Count Auto Di ff Reviewed date:01/31/2025 03:31:50 PM Interpretation: Performing Lab:[address] [address] Notes/Report: White Blood Count 6.8 4.8-10.8 X10*3/uL Red Blood Count 4.33 4.20-5.50 X10*6/uL Hemoglobin 13.6 12.0-16.0 g/dl Hematocrit 39.5 37.0-47.0 % Mean Corpuscular Volume 91.2 80.0-98.0 fL Mean Corpuscular Hemoglobin 31.4 27.0-33.0 pg Mean Corpuscular HGB Conc 34.4 31.0-35.0 g/dl Red Cell Distribution Width 13.2 11.0-16.0 % Platelet Count 182 160-400 X10*3/uL Mean Platelet Volume 11.2 9.4-12.3 fL Neutrophils Percent Auto 50.6 45-73 % Imm Gran Pct Auto 0.1 0.0-0.4 % Lymphocytes Percent Auto 39.7 20-40 % Monocytes Percent Auto 7.8 2-11 % Eosinophils Percent Auto 1.5 0-4 % Basophils Percent Auto 0.3 0-2 % NRBC Pct Auto 0.0 0.0-0.2 /100WBC Neutrophils Absolute Auto 3.4 2.0-8.3 x10*3/uL Imm Gran Abs Auto 0.01 0.00-0.03 X10*3/uL Lymphocytes Absolute Auto 2.7 1.2-4.9 X10*3/uL Monocytes Absolute Auto 0.5 0.1-1.2 X10*3/uL Eosinophils Absolute Auto 0.1 0.0-0.4 X10*3/uL Basophils Absolute Auto 0.0 0.0-0.2 X10*3/uL NRBC Abs Auto 0.000 0.0-0.012 X10*3/uL Comprehensive [place]. Panel Fa st Reviewed date:01/31/2025 03:31:50 PM Interpretation: Performing Lab:[facility], [address] [place] [phone] Notes/Report: Sodium 138 135-145 mmol/L Potassium 4.6 3.3-5.1 mmol/L Chloride 108 96-108 mmol/L Carbon Dioxide 24 22-29 mmol/L Anion Gap 11 12-20 Blood Urea Nitrogen 21 9-16 mg/dL Creatinine 0.85 0.5-1.4 mg/dL Estimated Glomerular Filt Rate > 60 Chronic Kidney Disease: Estimated GFR < 60 mL/min/1.73m2 Severe Kidney Disease: Estimated GFR < 15 mL/min/1.73m2 Glucose Fasting 86 60-99 mg/dL Calcium 9.7 8.4-10.2 mg/dL Bilirubin Total 0.5 0.0-1.0 mg/dL Aspartate Amino Transferase 25 5-31 U/L Alanine Aminotransferase 22 0-31 U/L Total Protein 7.2 6.5-8.0 g/dL Albumin Level 4.5 3.5-5.0 g/dL Alkaline Phosphatase 44 39-117 U/L Reason For Referral No Information Medications Medication SIG (Take, Route, Frequency, Duration) Notes Start Date End Date Status Zepbound 10 MG/0.5ML 0.5 mL Subcutaneous weekly for 28 days 03/03/2025 02/02/2026 Active Pantoprazole Sodium 40 MG 1 tablet Orally Once a day Active Gabapentin 100 MG 2 capsules Orally 3 times a day 04/19/2024 Active Celecoxib 200 MG TAKE 1 CAPSULE BY MOUTH DAILY NEEDED FOR PAIN Oral Active Zepbound 7.5 MG/0.5ML 0.5 mL Subcutaneou s weekly disp 4 pens 7.5 mg/week 11/08/2024 Active dexAMETHasone 2 MG 1 tablet Orally day 03/27/2024 Active Immunizations Vaccine Route Administration Date Status Comme nts COVID- 19 Vaccine Unknown 01/12/2021 Administered COVID- 19 Vaccine Unknown 12/15/2020 Administered COVID- 19 Vaccine Unknown 10/01/2021 Administered Social History Tobacco Use: Social History Observation Description Date Details (start date - stop date) Never Smoker NA - NA Sex Assigned At : Social History Observation Description Sex Assigned At Female Tobacco Use/Smoking Question Answer Notes Patient is a nonsmoker Additional Findings: Tobacco Non-User Aggressive non-smoker Alcohol Screen Question Answer Notes Did you have a drink contain ing alcohol in the past year? Yes How often did you have a dri nk containing alcohol in the past year? Monthly or less (1 point) How many drinks did you have on a typical day when you were drinking in the past year? 1 or 2 drinks (0 point) How often did you have 6 or more drinks on one occasion in the past year? Never (0 point) Points 1 Interpretation Negative Problems Problem Type SNOMED Code ICD Code Onset Dates Problem Status W/U Status Risk Notes Problem 763443768 Overweight (E66.3) Active confirmed Her weight has declined from a maximum of 187 pounds to its current value of 154. She has lost 23 pounds. She was continued on Zepbound 5 mg weekly. Problem 307247010 Lumbar radiculopathy (M54.16) Active confirmed This is a new exacerbation. She has used heat and rest. The x-ray showed degenerative changes but no fracture. She was given a course of cyclobenzaprine and dexamethasone. Problem 974456862 Mixed hyperlipidemia (E78.2) Active confirmed Comprehensive blood work will be done prior to her next visit which will include a fasting lipid profile. Problem 96810030 Hypercalcemia (E83.52) Active confirmed Her calcium level is now in the normal range. Observation will continue.Another calcium level done prior to her next visit. Problem Thrombophilia (027026365) Thrombophilia (D68.59) Active confirmed An ultrasound was ordered to evaluate the pain in her right calf muscle, but there is no clinical sign of clot. Problem 344932909 Factor 5 Leiden mutation, heterozygous (D68.51) Active confirmed There have been no cases of thromboembolism in her family. She has had no blood clotting. She will continue to be observed for this problem. Problem 595811754 Chronic kidney disease, unspecified CKD stage (N18.9) Active confirmed Her renal function is now in the normal range. This problem has resolved. Problem 819384226 Diabetic nephropathy associated with type 2 diabetes mellitus (E11.21) Active confirmed Vital Signs Heart Rate 74 /min 03/03/2025 Temperature 98.0 degrees Fahrenheit 03/03/2025 Blood pressure diastolic 81 mm Hg 03/03/2025 Height 62 in 03/03/2025 Blood pressure systolic 136 mm Hg 03/03/2025 Weight 153 lbs 03/03/2025 BMI 27.98 kg/m2 03/03/2025 Encounters Encounter Location Date Provider Diagnosis Stephen Rausch III, MD [address] [place] [address] [place] [address] 03/03/2025 Stephen Rausch III, MD [address] [place] [address] [place] [address] 03/27/2024 Stephen Rausch Type 2 diabetes fernando itus without complications E11.9 ; Lumbar radiculopathy M54.16 ; Factor 5 Leiden mutation, heterozygous D68.51 and Obesity E66.9 Stephen Rausch III, MD [address] [place] [address] [place] [address] 04/01/2024 Stephen Rausch Type 2 diabetes fernando itus without complications E11.9 ; Mixed hyperlipidemia E78.2 ; Obesity E66.9 ; Factor 5 Leiden mutation, heterozygous D68.51 and Acute right-sided low back pain with right-sided sciatica M54.41 Stephen Rausch III, MD [address] [place] [address] [place] [address] 04/12/2024 Stephen Caputone Type 2 diabetes fernando itus without complications E11.9 ; Factor 5 Leiden mutation, heterozygous D68.51 ; Obesity E66.9 ; Hypercalcemia E83.52 ; Mixed hyperlipidemia E78.2 and Sciatica of left side M54.32 Stephen Rausch III, MD [address] [place] [address] [place] [address] 05/09/2024 Stephen Garciarne Type 2 diabetes fernando itus without complications E11.9 ; Factor 5 Leiden mutation, heterozygous D68.51 ; Obesity E66.9 ; Hypercalcemia E83.52 ; Mixed hyperlipidemia E78.2 and Pain in left knee M25.562 Stephen Rausch III, MD [address] [place] [address] [place] [address] 06/13/2024 Stephen Caputone Type 2 diabetes fernando itus without complications E11.9 ; Factor 5 Leiden mutation, heterozygous D68.51 and Obesity E66.9 Stephen Rausch III, MD [address] [place] [address] [place] [address] 08/09/2024 Stephen Caputone Type 2 diabetes fernando itus without complications E11.9 ; Obesity E66.9 ; Chronic kidney disease, unspecified CKD stage N18.9 ; Factor 5 Leiden mutation, heterozygous D68.51 and Hypercalcemia E83.52 Stephen Rausch III, MD [address] [place] [address] [place] [address] 09/23/2024 Stephen Caputone Type 2 diabetes fernando itus without complications E11.9 ; Mixed hyperlipidemia E78.2 ; Factor 5 Leiden mutation, heterozygous D68.51 ; Hypercalcemia E83.52 ; Chronic kidney disease, unspecified CKD stage N18.9 ; Lumbar radiculopathy M54.16 and Overweight E66.3 Stephen Rausch III, MD [address] [place] [address] [place] [address] 11/08/2024 Stephen Rausch Type 2 diabetes fernando itus without complications E11.9 ; Mixed hyperlipidemia E78.2 ; Factor 5 Leiden mutation, heterozygous D68.51 ; Obesity E66.9 ; Hypercalcemia E83.52 and Lumbar radiculopathy M54.16 Stephen Rausch III, MD [address] [place] [address] 12/19/2024 Stephen Rausch Type 2 diabetes fernando itus without complications E11.9 ; Obesity E66.9 ; Mixed hyperlipidemia E78.2 and Hypercalcemia E83.52 Stephen Rausch III, MD [address] [place] [address] [place] [address] 01/31/2025 Stephen Rausch Factor 5 Leiden mutation, heterozygous D68.51 ; Hypercalcemia E83.52 ; Mixed hyperlipidemia E78.2 ; Thrombophilia D68.59 ; Chronic kidney disease, unspecified CKD stage N18.9 ; Lumbar radiculopathy M54.16 and Overweight E66.3 Stephen Rausch III, MD [address] [place] [address] [place] [address] 04/18/2024 Stephen Rausch III, MD [address] [place] [address] [place] [address] 04/19/2024 Stephen Rausch III, MD [address] [place] [address] [place] [address] 04/19/2024 Stephen Rausch III, MD [address] [place] [address] [place] [address] 05/09/2024 Stephen Rausch III, MD [address] [place] [address] [place] [address] 05/10/2024 Stephen Rausch III, MD [address] [place] [address] [place] [address] 05/10/2024 Stephen Rausch III, MD [address] [place] [address] [place] [address] 05/29/2024 Stephen Rausch III, MD [address] [place] [address] [place] [address] 05/31/2024 Stephen Rausch III, MD [address] [place] [address] [place] [address] 2024 Stephen Rausch III, MD [address] [place] [address] [place] [address] 2024 Stephen Rausch III, MD [address] [place] [address] [place] [address] 07/17/2024 Stephen Rausch III, MD [address] [place] [address] [place] [address] 07/18/2024 Stephen Rausch Type 2 diabetes fernando itus without complications E11.9 ; Chronic kidney disease, unspecified CKD stage N18.9 and Diabetic nephropathy associated with type 2 diabetes mellitus E11.21 Stephen Rausch III, MD [address] [place] [address] 07/30/2024 Stephen Rausch III, MD [address] [place] [address] [place] [address] 09/11/2024 Stephen Rausch III, MD [address] [place] [address] [place] [address] 09/12/2024 Stephen Rausch III, MD [address] [place] [address] [place] [address] 03/03/2025 Stephen Rausch Assessments Encounter Date Diagnosis (ICD Code) Assessment Notes Treat ment Notes Treatment Clinical Notes 03/27/2024 Lumbar radiculopathy (ICD-10 - M54.16) This is a new exacerbation. She has used heat and rest. The x-ray showed degenerative changes but no fracture. She was given a course of cyclobenzaprine and dexamethasone. 03/27/2024 Type 2 diabetes mellitus without complications (ICD-10 - E11.9) Her hemoglobin A1c is 5.3 in the nondiabetic range. She will continue to lose weight. We discussed diet and nutrition today. No medication was prescribed. 04/01/2024 Type 2 diabetes mellitus without complications (ICD-10 - E11.9) Her hemoglobin A1c is 5.3 in the nondiabetic range. She will continue to lose weight. We discussed diet and nutrition today. No medication was prescribed. 04/01/2024 Mixed hyperlipidemia (ICD-10 - E78.2) Her lipid values are slightly tuqp-otf-dreimxe target range. NNo medication is necessary. We made a plan for aggressive weight loss and a diet low in concentrated sweets and animal fats. 04/12/2024 Type 2 diabetes mellitus without complications (ICD-10 - E11.9) Her hemoglobin A1c is 5.3 in the nondiabetic range. She will continue to lose weight. We discussed diet and nutrition today. No medication was prescribed. 04/12/2024 Factor 5 Leiden mutation, heterozygous (ICD-10 - D68.51) There have been no cases of thromboembolism in her family. She has had no blood clotting. She will continue to be observed for this problem. 05/09/2024 Type 2 diabetes mellitus without complications (ICD-10 - E11.9) Her hemoglobin A1c is 5.3 in the nondiabetic range. She will continue to lose weight. We discussed diet and nutrition today. No medication was prescribed. Her fasting glucose levels have been low. If this continues to remove this diagnosis from her problem list. 05/09/2024 Factor 5 Leiden mutation, heterozygous (ICD-10 - D68.51) There have been no cases of thromboembolism in her family. She has had no blood clotting. She will continue to be observed for this problem. 06/13/2024 Type 2 diabetes mellitus without complications (ICD-10 - E11.9) She continues on her medication. To control of her diabetes has been excellent. It is noticed that she has lost 10 pounds. 06/13/2024 Factor 5 Leiden mutation, heterozygous (ICD-10 - D68.51) There have been no cases of thromboembolism in her family. She has had no blood clotting. She will continue to be observed for this problem. 08/09/2024 Obesity (ICD-10 - E66.9) Her body mass index is 30. She has lost 10 pounds.Her hemoglobin A1c is in the normal range. We discussed that weight loss strategy at length today. We made a plan to lose weight at a rate of one half of a pound per week. No change in her medication was made today. She will continue on her current dose. 08/09/2024 Type 2 diabetes mellitus without complications (ICD-10 - E11.9) She continues on her medication. To control of her diabetes has been excellent. It is noticed that she has lost 10 pounds.Her fasting glucose is 97. Her body mass index has fallen to 30.7. 09/23/2024 Type 2 diabetes mellitus without complications (ICD-10 - E11.9) She continues on her medication. To control of her diabetes has been excellent. It is noticed that she has lost 10 pounds.Her fasting glucose is 97. Her body mass index has fallen to 26. 09/23/2024 Mixed hyperlipidemia (ICD-10 - E78.2) Her lipid values are slightly vyqm-ohp-npdvseb target range. NNo medication is necessary. We made a plan for aggressive weight loss and a diet low in concentrated sweets and animal fats. 11/08/2024 Type 2 diabetes mellitus without complications (ICD-10 - E11.9) She continues on her medication. To control of her diabetes has been excellent. It is noticed that she has lost 10 pounds.Her fasting glucose is 97. Her body mass index has fallen to 26. 11/08/2024 Mixed hyperlipidemia (ICD-10 - E78.2) Her lipid values are slightly yxgy-rnp-hcfltbg target range. NNo medication is necessary. We made a plan for aggressive weight loss and a diet low in concentrated sweets and animal fats. 12/19/2024 Obesity (ICD-10 - E66.9) No change was made in her medication. She has lost 7 pounds in the last 7 weeks. She'll be seen every 6 weeks. 12/19/2024 Type 2 diabetes mellitus without complications (ICD-10 - E11.9) She continues on her medication. To control of her diabetes has been excellent. It is noticed that she has lost 10 pounds.Her fasting glucose is 97. Her body mass index has fallen to 26. 01/31/2025 Hypercalcemia (ICD-10 - E83.52) Her calcium level is now in the normal range. Observation will continue.Another calcium level done prior to her next visit. 01/31/2025 Factor 5 Leiden mutation, heterozygous (ICD-10 - D68.51) There have been no cases of thromboembolism in her family. She has had no blood clotting. She will continue to be observed for this problem. 03/27/2024 Factor 5 Leiden mutation, heterozygous (ICD-10 - D68.51) There have been no cases of thromboembolism in her family. She has had no blood clotting. She will continue to be observed for this problem. 04/01/2024 Obesity (ICD-10 - E66.9) Her body mass index is 34. Her hemoglobin A1c is in the normal range. We discussed that weight loss strategy at length today. We made a plan to lose weight at a rate of one half of a pound per week. 04/12/2024 Obesity (ICD-10 - E66.9) Her body mass index is 34. Her hemoglobin A1c is in the normal range. We discussed that weight loss strategy at length today. We made a plan to lose weight at a rate of one half of a pound per week. 05/09/2024 Obesity (ICD-10 - E66.9) Her body mass index is 34. Her hemoglobin A1c is in the normal range. We discussed that weight loss strategy at length today. We made a plan to lose weight at a rate of one half of a pound per week. 06/13/2024 Obesity (ICD-10 - E66.9) Her body mass index is 32. She has lost 10 pounds.Her hemoglobin A1c is in the normal range. We discussed that weight loss strategy at length today. We made a plan to lose weight at a rate of one half of a pound per week. 08/09/2024 Chronic kidney disease, unspecified CKD stage (ICD-10 - N18.9) Her glomerular filtration rate has increased from 40-59. No change in her medications was necessary. She was instructed to hydrate aggressively. 09/23/2024 Factor 5 Leiden mutation, heterozygous (ICD-10 - D68.51) There have been no cases of thromboembolism in her family. She has had no blood clotting. She will continue to be observed for this problem. 11/08/2024 Factor 5 Leiden mutation, heterozygous (ICD-10 - D68.51) There have been no cases of thromboembolism in her family. She has had no blood clotting. She will continue to be observed for this problem. 12/19/2024 Mixed hyperlipidemia (ICD-10 - E78.2) Comprehensive blood work will be done prior to her next visit which will include a fasting lipid profile. 01/31/2025 Mixed hyperlipidemia (ICD-10 - E78.2) Comprehensive blood work will be done prior to her next visit which will include a fasting lipid profile. 07/18/2024 Type 2 diabetes mellitus without complications (ICD-10 - E11.9) 03/27/2024 Obesity (ICD-10 - E66.9) Her body mass index is 34. Her hemoglobin A1c is in the normal range. We discussed that weight loss strategy at length today. We made a plan to lose weight at a rate of one half of a pound per week. 04/01/2024 Factor 5 Leiden mutation, heterozygous (ICD-10 - D68.51) There have been no cases of thromboembolism in her family. She has had no blood clotting. She will continue to be observed for this problem. 04/12/2024 Hypercalcemia (ICD-10 - E83.52) Her calcium level is now in the normal range at 10.0. Observation will continue. 05/09/2024 Hypercalcemia (ICD-10 - E83.52) Her calcium level is now in the normal range at 10.0. Observation will continue. 08/09/2024 Factor 5 Leiden mutation, heterozygous (ICD-10 - D68.51) There have been no cases of thromboembolism in her family. She has had no blood clotting. She will continue to be observed for this problem. 09/23/2024 Hypercalcemia (ICD-10 - E83.52) Her calcium level is now in the normal range at 9.9. Observation will continue. 11/08/2024 Obesity (ICD-10 - E66.9) Her body mass index is 30. She has gained two pounds.Her hemoglobin A1c is in the normal range. We discussed that weight loss strategy at length today. We made a plan to lose weight at a rate of one half of a pound per week. I have increased the is zepbound. 12/19/2024 Hypercalcemia (ICD-10 - E83.52) Her calcium level is now in the normal range at 9.9. Observation will continue.Another calcium level done prior to her next visit. 01/31/2025 Thrombophilia (ICD-10 - D68.59) An ultrasound was ordered to evaluate the pain in her right calf muscle, but there is no clinical sign of clot. 07/18/2024 Chronic kidney disease, unspecified CKD stage (ICD-10 - N18.9) 04/01/2024 Acute right-sided low back pain with right-sided sciatica (ICD-10 - M54.41) She will continue dexamethasone. and Gabapentin. She will refrain from heavy lifting and rest as much as possible. 04/12/2024 Mixed hyperlipidemia (ICD-10 - E78.2) Her lipid values are slightly [id number]-[id number] target range. NNo medication is necessary. We made a plan for aggressive weight loss and a diet low in concentrated sweets and animal fats. 05/09/2024 Mixed hyperlipidemia (ICD-10 - E78.2) Her lipid values are slightly [id number]-klm-elrnimm target range. NNo medication is necessary. We made a plan for aggressive weight loss and a diet low in concentrated sweets and animal fats. 08/09/2024 Hypercalcemia (ICD-10 - E83.52) Her calcium level is now in the normal range at 9.9. Observation will continue. 09/23/2024 Chronic kidney disease, unspecified CKD stage (ICD-10 - N18.9) Mild renal insufficiency from diabetes. These areas will be followed carefully. She is losing weight steadily which will help with glycemic control. 11/08/2024 Hypercalcemia (ICD-10 - E83.52) Her calcium level is now in the normal range at 9.9. Observation will continue. 01/31/2025 Chronic kidney disease, unspecified CKD stage (ICD-10 - N18.9) Her renal function is now in the normal range. This problem has resolved. 07/18/2024 Diabetic nephropathy associated with type 2 diabetes mellitus (ICD-10 - E11.21) 04/12/2024 Sciatica of left side (ICD-10 - M54.32) Sciatica has resolved in the lumbar spine pain is only intermittent dull ache. 05/09/2024 Pain in left knee (ICD-10 - M25.562) Pain is mild and she does not wish to pursue injections at this time. 09/23/2024 Lumbar radiculopathy (ICD-10 - M54.16) This is a new exacerbation. She has used heat and rest. The x-ray showed degenerative changes but no fracture. She was given a course of cyclobenzaprine and dexamethasone. 11/08/2024 Lumbar radiculopathy (ICD-10 - M54.16) This is a new exacerbation. She has used heat and rest. The x-ray showed degenerative changes but no fracture. She was given a course of cyclobenzaprine and dexamethasone. 01/31/2025 Lumbar radiculopathy (ICD-10 - M54.16) This is a new exacerbation. She has used heat and rest. The x-ray showed degenerative changes but no fracture. She was given a course of cyclobenzaprine and dexamethasone. 09/23/2024 Overweight (ICD-10 - E66.3) Her weight has declined from a maximum of 187 pounds to its current value of 162. She has lost 25 pounds. She was continued on Wegovy 5 mg weekly. 01/31/2025 Overweight (ICD-10 - E66.3) Her weight has declined from a maximum of 187 pounds to its current value of 154. She has lost 23 pounds. She was continued on Zepbound 5 mg weekly. Plan Of Treatment Pending Test Test Name Order Date PROFILE, FASTING (COMPREHENSIVE METABOLI C) 09/03/2019 PROFILE, FASTING (COMPREHENSIVE METABOLI C) 11/06/2018 PROFILE, FASTING (COMPREHENSIVE METABOLI C) 11/13/2023 PROFILE, FASTING (COMPREHENSIVE METABOLI C) 07/27/2016 PROFILE, FASTING (COMPREHENSIVE METABOLI C) 12/19/2024 PROFILE, FASTING (COMPREHENSIVE METABOLI C) 08/18/2023 PROFILE, FASTING (COMPREHENSIVE METABOLI C) 04/24/2023 PROFILE, FASTING (COMPREHENSIVE METABOLI C) 04/18/2022 PROFILE, FASTING (COMPREHENSIVE METABOLI C) 04/15/2020 PROFILE, FASTING (COMPREHENSIVE METABOLI C) 10/18/2018 PROFILE, RANDOM (COMPREHENSIVE METABOLIC ) 07/18/2024 HEMOGLOBIN A1C (GLYCOHEMOGLOBIN) 019 HEMOGLOBIN A1C (GLYCOHEMOGLOBIN) 023 HEMOGLOBIN A1C (GLYCOHEMOGLOBIN) 022 HEMOGLOBIN A1C (GLYCOHEMOGLOBIN) 020 HEMOGLOBIN A1C (GLYCOHEMOGLOBIN) 018 LIPID PANEL 04/15/2020 LIPID PANEL 10/18/2018 LIPID PANEL 09/03/2019 LIPID PANEL 07/27/2016 LIPID PANEL 11/06/2018 LIPID PANEL 04/24/2023 LIPID PANEL 04/18/2022 FREE T4 (FT4) 07/27/2016 TSH (THYROID STIMULATING HORMONE) 2017 TSH (THYROID STIMULATING HORMONE) 2018 TSH (THYROID STIMULATING HORMONE) 2015 MICROALBUMIN, RANDOM 04/24/2023 MICROALBUMIN, RANDOM 04/18/2022 MICROALBUMIN, RANDOM 08/18/2023 CBC w DIFF 04/15/2020 CBC w DIFF 04/24/2023 CBC w DIFF 04/18/2022 CBC w DIFF 10/18/2018 CBC w DIFF 09/03/2019 CBC w DIFF 11/06/2018 CBC w DIFF 07/27/2016 XR LUMBAR SPINE 03/27/2024 US ABD 09/09/2020 US LEG RT VENOUS DOPPLER 08/18/2023 CBC WITH AUTO DIFF 11/13/2023 CBC WITH AUTO DIFF 12/19/2024 CBC WITH AUTO DIFF 08/18/2023 Lipid Panel 11/13/2023 Microalbumin, Random 11/13/2023 Hemoglobin A1c 11/13/2023 Next Appt Details Provider Name:Stephen Rausch, 03/31/2025 02:45:00 PM, [address] [place] [address] [address], [place], [phone], Provider Name:Stephen Rausch, 05/12/2025 09:30:00 AM, [address] [place] [address] [address], [place], [address], Insurance Providers Payer Name Payer Address Payer Phone Subscriber Number Group Number Insured Name Patient Relationship to Insured Coverage Start Date Coverage End Date [facility] [address] [place], [place] [id number] [phone] [id number] Wily Gaines Self - patient is the insured Medical (General) History Medical History History ICD Code Type 2 diabetes mellitus without complic ations E11.9 Factor 5 Leiden mutation, heterozygous D 68.51 obesity low back pain fron DJD dvt right leg 2000 Surgical History Surgery Date(Month/Year) No history left knee arthroscopic surgery 1988 Hospitalization History Reason Date(Month/Year) No history
--- OUTSIDE RECORDS SUMMARY | 2025-03-05 13:30 | XMS_ITS ---
Author Organization Stephen Rausch III, MD Address [address] [place] [address] [place] [address] Care Team Providers Care Social Human Services Assistants Name Role Phone Stephen Rausch Primary Care Provider Allergies Allergen (clinical drug ingredient) Drug/Non Drug Allergy documented on EMR Reaction Allergy Type Onset Date Status sulfacetamide Sulfacetamide Unknown Drug Allergy Active Penicillin Unknown Drug Allergy Active ampicillin Ampicillin Unknown Drug Allergy Activ e sulfamethoxazole / trimethoprim Bactrim Unknown Drug Allergy Active REASON FOR VISIT Follow Up weight check Medications Medication SIG (Take, Route, Frequency, Duration) Notes Start Date End Date Status Zepbound 10 MG/0.5ML 0.5 mL Subcutaneous weekly for 28 days 03/03/2025 02/02/2026 Active Pantoprazole Sodium 40 MG 1 tablet Orally Once a day Active Gabapentin 100 MG 2 capsules Orally 3 times a day 04/19/2024 Active Zepbound 7.5 MG/0.5ML 0.5 mL Subcutaneou s weekly disp 4 pens 7.5 mg/week 11/08/2024 Active dexAMETHasone 2 MG 1 tablet Orally twic e a day 03/27/2024 Active Celecoxib 200 MG TAKE 1 CAPSULE BY MOUTH DAILY NEEDED FOR PAIN Oral Active Social History Tobacco Use: Social History Observation Description Date Details (start date - stop date) Never Smoker NA - NA Sex Assigned At : Social History Observation Description Sex Assigned At Female Tobacco Use/Smoking Question Answer Notes Patient is a nonsmoker Additional Findings: Tobacco Non-User Aggressive non-smoker Vital Signs Temperature 98.0 degrees Fahrenheit 03/03/20 25 Blood pressure systolic 136 mm Hg 03/03/20 25 Blood pressure diastolic 81 mm Hg 025 Heart Rate 74 /min 03/03/2025 Height 62 in 03/03/2025 Weight 153 lbs 03/03/2025 BMI 27.98 kg/m2 03/03/2025 Encounters Encounter Location Date Provider Diagnosis Stephen Rausch III, MD [address] [place] [address] [place] [address] 03/03/2025 Stephen Rausch Plan Of Treatment Medication Medication Name Sig Start Date Stop Date Notes Zepbound 10 MG/0.5ML 0.5 mL Subcutaneous weekly for 28 days 03/03/2025 02/02/2026 Pantoprazole Sodium 40 MG 1 tablet Orally Once a day Gabapentin 100 MG 2 capsules Orally 3 times a day 04/19/20 24 dexAMETHasone 2 MG 1 tablet Orally twice a day 03/27/2024 Celecoxib 200 MG TAKE 1 CAPSULE BY [facility] DAILY NEEDED FOR PAIN Oral Next Appt Details Provider Name:Stephen Rausch, 03/31/2025 02:45:00 PM, [address] [place] [address] [address], [place], [address], Provider Name:Stephen Rausch, 05/12/2025 09:30:00 AM, [address] [place] [address] [address], [place], [address], Progress Notes * Ivory GAINESDOB:[birth year] (49 yo F)Acc No.[id number]:03/03/2025 Progress Notes Patient:?Duncan GAINESrom Provider:?Stephen Rausch MD :1975???Age:49 Y???Sex:Female D ate:03/03/2025 Address:[address] [place] [address] [address] [place] [id number] Subjective: * Chief Complaints: * ???1. Follow Up weight check . * HPI: ???COVID-19 Screening:?Questions?Have you had any new onset fever, chills, cough, congestion, sore throat, shortness of breath, muscle aches??No * ROS:?General/Constitutional:?pain?only normal aches and pains.?Chills?denies.?Fatigue?admits.?Fever?denies.?ENT:?Decreased hearing?denies.?Respiratory:?Cough?denies.?Cardiovascular:?Chest pain with exertion?denies.?Dyspnea on exertion?denies.?Shortness of breath?denies.?Gastrointestinal:?Constipation?denies.?Decreased appetite?denies.?Diarrhea?denies.?Heartburn?denies.?Nausea?denies.?Rectal bleeding?denies.?Vomiting?denies.?Hematology:?bruising?denies.?petechiae?denies.?Swollen glands?none have been noted.?Genitourinary:?Frequent urination?denies.?Musculoskeletal:?Muscle aches?denies.?Painful joints?denies.?Sciatica?denies.?Weakness?denies.?Skin:?Itching?denies.?Rash?denies.?Skin lesion(s)?denies.?Neurologic:?Difficulty speaking?denies.?Dizziness?denies.?Headache?denies.?Low back pain?denies.?Psychiatric:?Depressed mood?denies.? * Medical History:?Type 2 diab etes mellitus without complications, Factor 5 Leiden mutation, heterozygous, Obesity, low back pain fron DJD, Dvt right leg 2000. * Surgical History:?left knee arthroscopic surgery 1988, No history . * Hospitalization/Major Diagno stic Procedure:?No history . * Family History:?Father: duncan viveros.?Mother: alive.?1 sister(s) - healthy. 1 son(s) - healthy. .? 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 She has a child, Wayne. * Medications:?Taking Gabapent in 100 MG Capsule 2 capsules Orally 3 times a day , Taking Pantoprazole Sodium 40 MG Tablet Delayed Release 1 tablet Orally Once a day , Taking dexAMETHasone 2 MG Tablet 1 tablet Orally twice a day , Taking Celecoxib 200 MG Capsule TAKE 1 CAPSULE BY MOUTH DAILY NEEDED FOR PAIN Oral , Taking Zepbound 7.5 MG/0.5ML Solution Auto-injector 0.5 mL Subcutaneous weekly , Notes to Pharmacist: disp 4 pens 7.5 mg/week, Medication List reviewed and reconciled with the patient * Allergies:?Bactrim, Sulfacet amide, Ampicillin, Penicillin. Objective: * Vitals:?Ht: 62, Wt: 153, BMI :27.98, BP: 136/81, HR: 74, Temp: 98.0, Ht-cm: 157.48, Wt-k.4. * Examination: ???General Examination: ?GENERAL APPEARANCE:?pleasant, well nourished, well developed, in no acute distress, calm and relaxed.?HEAD:?atraumatic, normocephalic.?EYES:?eomi, perrla, anicteric, conjugate.?EARS:?normal.?NOSE:?septum intact.?ORAL CAVITY:?normal, unremarkable.?NECK/THYROID:?no jugular venous distention, no carotid bruit, thyroid normal.?LYMPH NODES:?no enlarged lymph nodes,spleen normal.?SKIN:?no suspicious lesions, anicteric.?HEART:?no clicks, gallops, murmurs, or rubs, regular rhythm, S1, S2 normal, no s3, or vascular bruits.?LUNGS:?clear to auscultation .?BREASTS:??no masses palpable bilaterally.?ABDOMEN:?bowel sounds normal, no ascites, no organomegaly, no mass.?RECTAL EXAM:?not examined.?MUSCULOSKELETAL:?extremities unremarkable, no clubbing, cyanosis or edema.?PERIPHERAL PULSES:?normal.?NEUROLOGIC:?alert and oriented, cranial nerves 2-12 grossly intact, deep tendon reflexes 2+ symmetrical, motor strength normal upper and lower extremities, sensory exam intact.?PSYCH:?alert, oriented.? Assessment: Plan: * Treatment: * Preventive Medicine:? ??Counseling:?Care goal follow-up plan:?Counseling [...] Medical or Other reason not done * Images: * The named appointment provid er may or may not be the originator of this progress note, and it is not deemed complete until electronically signed by the appointment provider. Sign off status: Pending * Provider:?Stephen Rausch MD Date:?02/2025 Generated for Annamaria gar/Pravin/eTransmitting on:?03/05/2025 01:30 PM EDT History and Physical Notes * HPI (History of Present Illness) Category Sub-Category Detail Notes COVID-19 Screening Questions Have you had any new onset fever, chills, cough, congestion, sore throat, shortness of breath, muscle aches?: No Examination Category Sub-Category Detail Notes General Examination GENERAL APPEARANCE: pleasant , well nourished, well developed, in no acute distress, calm and relaxed HEAD: atraumatic, normocep halic EYES: eomi, perrla, anicte cheryl, conjugate EARS: normal NOSE: septum intact NECK/THYROID: no jugular venous di stention, no carotid bruit, thyroid normal HEART: no clicks, gallops, murmurs, or rubs, regular rhythm, S1, S2 normal, no s3, or vascular bruits LUNGS: clear to auscultatio n ABDOMEN: bowel sounds normal, no ascites, no organomegaly, no mass NEUROLOGIC: alert and oriented, cranial nerves 2-12 grossly intact, deep tendon reflexes 2+ symmetrical, motor strength normal upper and lower extremities, sensory exam intact SKIN: no suspicious lesion s, anicteric PERIPHERAL PULSES: normal BREASTS: no masses palpable b ilaterally MUSCULOSKELETAL: extremities unremark able, no clubbing, cyanosis or edema LYMPH NODES: no enlarged lymph no jose carlos,spleen normal RECTAL EXAM: not examined PSYCH: alert, oriented ORAL CAVITY: normal, unremarkable
--- OUTSIDE RECORDS SUMMARY | 2025-03-05 13:31 | XMS_ITS ---
Author Organization Stephen Rausch III, MD Address [address] [place] [address] [place] [address] Care Team Providers Care Manager Of Care Name Role Phone Stephen Rausch Primary Care Provider [phone] REASON FOR VISIT Message Social History Sex Assigned At : Social History Observation Description Sex Assigned At Female Encounters Encounter Location Date Provider Diagnosis Stephen Rausch III, MD [address] [place] [address] [place] [address] 03/03/2025 Stephen Rausch Plan Of Treatment Next Appt Details Provider Name:Stephen Rausch, 03/31/2025 02:45:00 PM, [address] [place] [address] [address], [phone], Provider Name:Stephen Rausch, 05/12/2025 09:30:00 AM, [address] [place] [address] [place], [address], Progress Notes * Ivory GAINESDOB:[birth year] (49 yo F)Acc No.[id number]:03/03/2025 Patient:?CHARLIDuncan TOWNSENDrom :1975???Age:49 Y???Sex:Female Address:[address] [place] [address] * true * Date:? Generated for Printi rin/Fabriziog/eTransmitting on:?03/05/2025 01:30 PM EDT
== END 2025-03-05 12:19 | disposition home or self-care (01) ==
LOC: HO.MAMMO 12:18
PROVIDERS: PCP Internal Medicine Medical Oncology; Visit Provider Internal Medicine Medical Oncology
DX: Z12.31 Encounter for screening mammogram for malignant neoplasm of breast (principal)
CPT/HCPCS: 77063; 77067

== ENCOUNTER → 2025-03-05 12:30 | Outpatient (BNV) | payer BC, SELFPAY | PROVIDERS: PCP Internal Medicine Medical Oncology; Visit Provider Internal Medicine | DX: Z12.31 Encounter for screening mammogram for malignant neoplasm of breast (principal) | CPT/HCPCS: 77063; 77067 ==

== ENCOUNTER 2025-05-08 07:27 | Outpatient (REF) | payer BC, SELFPAY ==
--- OUTSIDE RECORDS SUMMARY | 2025-04-28 09:59 | XMS_ITS ---
Author Organization Stephen Rausch III, MD Address [address] [place] [address] [place] [address] Care Team Providers Care Human Resources Coordinator Name Role Phone Stephen Rausch Primary Care Provider REASON FOR VISIT re: [facility] and BRCA testing Social History Sex Assigned At : Social History Observation Description Sex Assigned At Female Encounters Encounter Location Date Provider Diagnosis Stephen Rausch III, MD [address] [place] [address] [place] [address] 04/28/2025 Stephen Rausch Plan Of Treatment Next Appt Details Provider Name:Stephen Rausch, 05/12/2025 09:30:00 AM, [address] [place] [address] [address], [address], Progress Notes * Ivory GAINESDOB:[birth year] (49 yo F)Acc No.[id number]:04/28/2025 Patient: Stefania PRAKASHIvory :1975 A ge:49 Y S ex:Female Address:[address] [place] [address] * true * Date: Generated for Annaleei ng/Faxing/eTransmitting on: 0 05/08/2025 07:29 AM EDT
[2025-05-08 07:41] LABS: MANUAL DIFF FLAG NO
[2025-05-08 08:17] LABS: Hematocrit 38.8 % (37.0-47.0); Hemoglobin 13.7 g/dl (12.0-16.0); Imm Gran Abs Auto 0.02 X10*3/uL (0.00-0.03); Imm Gran Pct Auto 0.2 % (0.0-0.4); Lymphocytes Absolute Auto 2.9 X10*3/uL (1.2-4.9); Mean Corpuscular HGB Conc 35.3 g/dl (31.0-35.0); Mean Corpuscular Hemoglobin 31.6 pg (27.0-33.0); Mean Corpuscular Volume 89.6 fL (80.0-98.0); NRBC Abs Auto 0.000 X10*3/uL (0.0-0.012); NRBC Pct Auto 0.0 /100WBC (0.0-0.2); Platelet Count 223 X10*3/uL (160-400); Red Blood Count 4.33 X10*6/uL (4.20-5.50); White Blood Count 8.0 X10*3/uL (4.8-10.8)
[2025-05-08 08:47] LABS: Alanine Aminotransferase 20 U/L (0-31); Albumin Level 4.7 g/dL (3.5-5.0); Alkaline Phosphatase 50 U/L (39-117); Anion Gap 10 (12-20); Aspartate Amino Transferase 19 U/L (5-31); Blood Urea Nitrogen 22 mg/dL (9-16); Calcium 9.9 mg/dL (8.4-10.2); Carbon Dioxide 25 mmol/L (22-29); Chloride 105 mmol/L (96-108); Cholesterol 205 mg/dL (<200); Estimated Glomerular Filt Rate 58; HDL Cholesterol 48 mg/dL (>40); Potassium 4.4 mmol/L (3.3-5.1); Sodium 136 mmol/L (135-145); Total Protein 7.4 g/dL (6.5-8.0); Triglycerides 71 mg/dL (<150)
== END 2025-05-08 07:28 | disposition home or self-care (01) ==
LOC: HO.LAB 07:27
PROVIDERS: PCP Internal Medicine Medical Oncology; Visit Provider Internal Medicine Medical Oncology
DX: M54.16 Radiculopathy, lumbar region (principal); E78.2 Mixed hyperlipidemia; D68.59 Other primary thrombophilia
CPT/HCPCS: 36415; 80053; 80061; 85025